=== PATIENT | male | born 1945 | race Hispanic/Latino ===

== ENCOUNTER 2018-04-11 10:04 | Outpatient (CLI) | payer MEDICARE ==
[2018-04-11] MEDS ORDERED: XYLOCAINE TOPICAL 4% TP ONE ×2 (11:04→12:15)
== END 2018-04-11 10:05 | disposition home or self-care (01) ==
LOC: WOUND 10:04
PROVIDERS: ATTEND Surgery
DX: E11.622 Type 2 diabetes mellitus with other skin ulcer (principal); L97.222 Non-pressure chronic ulcer of left calf with fat layer exposed; E11.40 Type 2 diabetes mellitus with diabetic neuropathy, unspecified; I48.91 Unspecified atrial fibrillation; I10 Essential (primary) hypertension; F17.200 Nicotine dependence, unspecified, uncomplicated
CPT/HCPCS: 11042; G0463

== ENCOUNTER → 2018-04-17 | Outpatient (CLI) | payer MEDICARE ==
[~2018-04-17] MED LIST: XYLOCAINE TOPICAL 4% TP ONE
== END | disposition home or self-care (01) ==
LOC: WOUND 11:04
PROVIDERS: ATTEND Surgery
DX: E11.622 Type 2 diabetes mellitus with other skin ulcer (principal); L97.821 Non-pressure chronic ulcer of other part of left lower leg limited to breakdown of skin; I10 Essential (primary) hypertension; I48.91 Unspecified atrial fibrillation; F17.200 Nicotine dependence, unspecified, uncomplicated

== ENCOUNTER 2018-05-15 13:29 | Outpatient (CLI) | payer MEDICARE ==
[2018-05-15] MEDS ORDERED: XYLOCAINE TOPICAL 4% TP ONE (13:40)
[2018-05-16] MEDS ORDERED: XYLOCAINE TOPICAL 4% TP ONE (12:13)
== END 2018-05-15 13:30 | disposition home or self-care (01) ==
LOC: WOUND 13:29
PROVIDERS: ATTEND Surgery
DX: E11.622 Type 2 diabetes mellitus with other skin ulcer (principal); L97.821 Non-pressure chronic ulcer of other part of left lower leg limited to breakdown of skin; I48.91 Unspecified atrial fibrillation; I10 Essential (primary) hypertension; F17.200 Nicotine dependence, unspecified, uncomplicated
CPT/HCPCS: 99214; G0463

== ENCOUNTER 2018-05-21 09:51 | Outpatient (CLI) | payer MEDICARE ==
--- NOTE | 2018-05-25 19:25 | Vascular Lab Report ---
LOWER EXTREMITY VENOUS DUPLEX: REASON FOR EXAM: Lymphedema. COMMENTS ON THE RIGHT: All veins visualized are freely compressible without evidence of internal echogenicity. Flow is spontaneous and phasic throughout. COMMENTS ON THE LEFT: All veins visualized are freely compressible without evidence of internal echogenicity. Flow is spontaneous and phasic throughout. IMPRESSION: No evidence of acute or chronic deep venous thrombosis in either lower extremity.
== END 2018-05-21 09:52 | disposition home or self-care (01) ==
LOC: VAS 09:51
PROVIDERS: ATTEND Surgery
DX: E11.40 Type 2 diabetes mellitus with diabetic neuropathy, unspecified (principal); I89.0 Lymphedema, not elsewhere classified; I48.91 Unspecified atrial fibrillation; I10 Essential (primary) hypertension; M19.90 Unspecified osteoarthritis, unspecified site; Z87.891 Personal history of nicotine dependence
CPT/HCPCS: 93970

== ENCOUNTER 2018-05-29 11:18 | Outpatient (CLI) | payer MEDICARE | END 2018-05-29 11:19 | disposition home or self-care (01) | LOC: WOUND 11:18 | PROVIDERS: ATTEND Surgery | DX: E11.622 Type 2 diabetes mellitus with other skin ulcer (principal); L97.821 Non-pressure chronic ulcer of other part of left lower leg limited to breakdown of skin; I48.91 Unspecified atrial fibrillation; I10 Essential (primary) hypertension; F17.200 Nicotine dependence, unspecified, uncomplicated | CPT/HCPCS: 99214; G0463 ==

== ENCOUNTER 2018-06-05 12:59 | Outpatient (CLI) | payer MEDICARE | END 2018-06-05 13:00 | disposition home or self-care (01) | LOC: WOUND 12:59 | PROVIDERS: ATTEND Surgery | DX: E11.622 Type 2 diabetes mellitus with other skin ulcer (principal); L97.821 Non-pressure chronic ulcer of other part of left lower leg limited to breakdown of skin; I48.91 Unspecified atrial fibrillation; I10 Essential (primary) hypertension; F17.200 Nicotine dependence, unspecified, uncomplicated | CPT/HCPCS: 99214; G0463 ==

== ENCOUNTER 2018-11-26 14:10 | Inpatient (IN) | payer MEDICARE ==
[2018-11-26] MEDS ORDERED: NACL 0.9% 500 ML 500 ML IV ONE (14:29)
[2018-11-26] MEDS ORDERED: ZOSYN/NS 4.5GM/100ML 4.5 GM/100 ML VIAL IV ONE (14:29)
[2018-11-26] MEDS ORDERED: CARDIZEM IV ONE (14:30)
[2018-11-26] MEDS ORDERED: TYLENOL PR ONE ×3 (14:32)
[2018-11-26] MEDS ORDERED: NACL 0.9% 1000 ML 1,000 ML ONE (14:32)
--- NOTE | 2018-11-26 14:39 | Emergency Department Report ---
HPI - General Chief Complaint: Altered Mental Status Time Seen by Provider: 11/26/18 14:16 - HPI HPI: 73-year-old male presents to the emergency department via EMS from home with complaint of tachycardia, altered mental status. The patient has a history of CHF, paroxysmal atrial fibrillation on anticoagulation, diabetes. EMS gave both Versed and Narcan to the patient without due to some agitation. The patient does present confused and/or disoriented and is currently AAO x2 to person and place but not time. He does present with atrial fibrillation with RVR, a fever of 103F and a code sepsis has been called. The patient is a poor historian. ED Past Medical Hx - Past Medical History Previous Medical History?: Yes Hx Hypertension: Yes Hx Diabetes: Yes Hx Arthritis: Yes Additional medical history: Atrial fibrillation. hep c, chronic back pain "requiring pain medicines around the clock." - Surgical History Past Surgical History?: Yes Additional Surgical History: hernia surgery - Social History Smoking Status: Unknown if ever smoked - Medications Home Medications: Home Medications Medication Instructions Recorded Confirmed Last Taken Type hydroCHLOROthiazide [HCTZ] 12.5 mg PO QDAY 08/26/13 10/28/14 10/28/14 History metFORMIN [Glucophage] 500 mg PO BID 08/26/13 10/28/14 10/28/14 History Oxycodone HCl [oxyCODONE TAB] 30 mg PO Q6HR PRN 08/27/13 10/28/14 10/28/14 History Gabapentin [Neurontin] 300 mg PO Q8H 10/28/14 10/28/14 10/28/14 History Ledipasvir/Sofosbuvir (Nf) 1 each PO DAILY 10/28/14 10/28/14 10/28/14 History [Harvoni 90-400 mg (Nf)] Warfarin [Coumadin] 10 mg PO QDAY 10/28/14 10/28/14 10/28/14 History Lisinopril [Zestril TAB] 2.5 mg PO QDAY #30 tablet 10/29/14 Unknown Rx Aspirin [Aspirin BABY CHEW TAB] 81 mg PO QDAY #30 tab.chew 10/30/14 Unknown Rx Metoprolol [Lopressor TAB] 50 mg PO Q8HR #90 tablet 10/30/14 Unknown Rx ED Review of Systems ROS: Stated complaint: ALTERED MENTAL STATUS Other details as noted in HPI Comment: Unobtainable due to pts medical conditions Physical Exam - Physical Exam Vital Signs: Vital Signs 11/26/18 11/26/18 14:21 14:26 Temperature 103.3 F H Pulse Rate 155 H Respiratory 30 H Rate Blood Pressure 131/68 [Left] O2 Sat by Pulse 96 Oximetry Physical Exam: GENERAL: Patient is ill-appearing.. HEENT: Normocephalic. Atraumatic. Patient has moist mucous membranes. EYES: Extraocular motions are intact. Pupils are equal and reactive to light bilaterally. NECK: Supple. Trachea is midline. CHEST/LUNGS: Clear to auscultation. There is no respiratory distress noted. HEART/CARDIOVASCULAR: Irregular with moderate to severe tachycardia. There is no obvious murmur. ABDOMEN: Abdomen is soft, nontender. Patient has normal bowel sounds. There is no abdominal distention. SKIN: There is some bilateral nonpitting lower extremity edema. The patient also has warmth and erythema to the lower extremities around the circumferential tib-fib's that appears consistent with a cellulitis. NEURO: Patient is altered and very sleepy but is arousable. He is AAO [address] but not time. Follows some commands. Withdraws from painful stimuli. MUSCULOSKELETAL: There is no tenderness or deformity. There is no evidence of acute injury. ED Course Vital Signs 11/26/18 11/26/18 14:21 14:26 Temperature 103.3 F H Pulse Rate 155 H Respiratory 30 H Rate Blood Pressure 131/68 [Left] O2 Sat by Pulse 96 Oximetry ED Medical Decision Making - Lab Data Result diagrams: 11/26/18 14:48 11/26/18 14:48 - EKG Data -: EKG Interpreted by Me - EKG Data When compared to previous EKG there are: no significant change Interpretation: unchanged when compared t (10/29/14), other (atrial fibrillation with RVR, rate of 147 bpm, left axis deviation, Q waves to the septal leads) - Radiology Data Radiology results: report reviewed, image reviewed interpreted by me: Chest x-ray does not show any pneumothorax, pleural effusion, pneumonia or obvious focal consolidation. PROCEDURE: CT HEAD/BRAIN WO CON TECHNIQUE: Computerized tomography of the head was performed without contrast material. Imaging was obtained in axial increments. CT DOSE LENGTH PRODUCT: 1049.4 mGycm HISTORY: Altered Mental Status COMPARISONS: None . FINDINGS: The ventricular system is normal in size and configuration. There is mild cerebral atrophy. There is no evidence for mass lesion, mass effect, midline shift, acute intracranial hemorrhage, or acute ischemia/ infarction. No evidence for acute skull fracture is seen. No abnormality in the overlying scalp soft tissues is seen. Visualized paranasal sinuses demonstrate mucosal thickening in the ethmoid air cells bilaterally. IMPRESSION: No acute intracranial process noted. Mild cerebral atrophy This document is electronically signed by Renita Saucedo MD., November 26 2018 06:21:29 PM ET Transcribed By: [facility] Dictated By: RENITA SAUCEDO MD Electronically Authenticated By: RENITA SAUCEDO MD Signed Date/Time: 11/26/18 8373 - Medical Decision Making This patient presented to the emergency department with some altered mental status and agitated behavior and was also found to have atrial fibrillation with RVR. He does have a history of paroxysmal A. fib. He'll receive some Narcan and Versed in route and does still present after but is no longer agitated. CT scan of the head does not show any bleed, shift, mass, ischemia or any other acute process. EKG confirms atrial fibrillation with RVR and the patient was given a dose of Cardizem followed by a Cardizem bolus. Patient also was a code sepsis secondary to his tachycardia, fever. His source of infection appears to be lower extremity cellulitis. He was started on antibiotics and is received IV fluid resuscitation. First lactic acid level came back elevated. The patient is on Coumadin but appears subtherapeutic. With this consistent atrial fibrillation with RVR, the patient will be started on a heparin drip. He will be admitted to the [facility] and was accepted for admission by the hospitalist, Dr. Hill. - Differential Diagnosis A-fib, PE, CVA, Substance abuse, Sepsis Critical Care Time: Yes Critical care time in (mins) excluding proc time.: 35 Critical care attestation.: If time is entered above; I have spent that time in minutes in the direct care of this critically ill patient, excluding procedure time. Critical care time was spent on this patient and during his initial evaluation, multiple re-eval uations, ordering and interpretation of labs and imaging, ordering and administration of medications including Cardizem and heparin drips. Critical Care Time: 35 minutes ED Disposition Clinical Impression: Atrial fibrillation with RVR, Bilateral lower leg cellulitis Altered mental status Qualifiers: Altered mental status type: unspecified Qualified Code(s): R41.82 - Altered mental status, unspecified Sepsis Qualifiers: Sepsis type: sepsis due to unspecified organism Qualified Code(s): A41.9 - Sepsis, unspecified organism Disposition: OP ADMIT IP TO THIS HOSP Is pt being admited?: Yes Condition: Serious Referrals: PRIMARY CARE, [Primary Care Provider] - 3-5 Days Time of Disposition: 18:01
[2018-11-26 15:01] LABS: Hematocrit 42.4 % (35.5-45.6); Mean Corpuscular HGB Conc 33 % (32-34); Mean Corpuscular Volume 82 fl (84-94); Platelet Count 129 K/mm3 (140-440); Red Blood Count 5.16 M/mm3 (3.65-5.03); Red Cell Distribution Width 17.2 % (13.2-15.2)
[2018-11-26 15:14] LABS: INR 1.19 (0.87-1.13)
[2018-11-26 15:15] LABS: Partial Thromboplastin Time 33.7 Sec. (24.2-36.6)
--- NOTE | 2018-11-26 15:26 | XRay Report ---
AP CHEST: HISTORY: Altered mental status Compared to 10/28/14. Emphysematous changes are again identified. There are moderate bullous changes in the right apex. The interstitium is prominent which could represent chronic interstitial changes or mild interstitial edema. There is no evidence for consolidation, large pleural effusion or pneumothorax. Heart size is at the upper limits of normal. IMPRESSION: Emphysematous changes. Prominent interstitium. See above.
[2018-11-26 15:36] LABS: BUN/Creatinine Ratio 16; Blood Urea Nitrogen 14 mg/dL (9-20)
[2018-11-26 15:37] LABS: Alanine Aminotransferase 10 units/L (7-56); Albumin 3.3 g/dL (3.9-5); Hemolysis Index 6
[2018-11-26] MEDS: CARDIZEM 100 MG in D5W 80 ML IV SCH ×2 (16:45→23:42)
--- NOTE | 2018-11-26 18:23 | Cat Scan Report ---
PROCEDURE: CT HEAD/BRAIN WO CON TECHNIQUE: Computerized tomography of the head was performed without contrast material. Imaging was obtained in axial increments. CT DOSE LENGTH PRODUCT: 1049.4 mGycm HISTORY: Altered Mental Status COMPARISONS: None . FINDINGS: The ventricular system is normal in size and configuration. There is mild cerebral atrophy. There is no evidence for mass lesion, mass effect, midline shift, acute intracranial hemorrhage, or a cute ischemia/ infarction. No evidence for acute skull fracture is seen. No abnormality in the overlying scalp soft tissues is s een. Visualized paranasal sinuses demonstrate mucosal thickening in the ethmoid air cells bilaterally. IMPRESSION: No acute intracranial process noted. Mild cerebral atrophy This document is electronically signed by Renita Saucedo MD., November 26 2018 06:21:29 PM ET
[2018-11-26] MEDS ORDERED: HEPARIN 10,000 UNITS/10 ML IV ONE (18:33)
[2018-11-26] MEDS ORDERED: HEPARIN/ 0.45% NACL-25,000 UNIT/500 ML 25,000 UNIT/500 ML BAG IV SCH (19:00)
[2018-11-26 19:11] LABS: Bilirubin,Urine NEG (Negative); Blood,Urine NEG (Negative); Color,Urine Yellow (Yellow); Protein,Urine <15 mg/dL mg/dL (Negative)
[2018-11-26 20:45] LABS: Band Neutrophils # (Manual) 0.6 K/mm3; Basophils % (Manual) 0 % (0.0-1.8); Eosinophils % (Manual) 0 % (0.0-4.3); Platelet Estimate Consistent w Auto; Total Cells Counted 100
[2018-11-27] MEDS ORDERED: TYLENOL PO PRN (00:28)
[2018-11-27] MEDS ORDERED: ZOFRAN IV PRN (00:28)
[2018-11-27] MEDS ORDERED: SODIUM CHLORIDE FLUSH SYRINGE 10 ML IV PRN (00:28)
[2018-11-27] MEDS ORDERED: VANCOMYCIN PHARMACY TO DOSE IV SCH (01:00)
[2018-11-27] MEDS ORDERED: NACL 0.9% 1000 ML 1,000 ML IV SCH (01:00)
[2018-11-27] MEDS ORDERED: ROXICODONE ONE ×2 (01:36→08:40)
[2018-11-27] MEDS ORDERED: GLUCOPHAGE ONE ×2 (01:36→08:44)
[2018-11-27] MEDS ORDERED: NEURONTIN ONE ×2 (01:37→06:01)
[2018-11-27] MEDS: LOPRESSOR PO SCH ×2 (01:45→06:15)
[2018-11-27] MEDS: UNASYN/NS 3 GM/100 ML 3 GM/100 ML BAG IV SCH ×4 (01:46→23:30)
[2018-11-27] MEDS: NEURONTIN PO SCH ×4 (01:46→21:26)
[2018-11-27] MEDS: GLUCOPHAGE PO SCH ×2 (01:46→08:49)
[2018-11-27] MEDS: ROXICODONE PO PRN ×4 (01:47→23:30)
[2018-11-27] MEDS ORDERED: VANCOMYCIN 2,000 MG in NACL 0.9% 500 ML 500 ML IV ONE (02:00)
--- NOTE | 2018-11-27 03:43 | Event Note ---
Date: 11/26/18 See H/p in reports Cellulitis Both Lower extremities Afib with RVR AMS
--- NOTE | 2018-11-27 04:32 | History and Physical Report ---
CHIEF COMPLAINT: Altered mental status for 1 day. HISTORY OF PRESENT ILLNESS: A 73-year-old male with history of hypertension, diabetes, arthritis, atrial fibrillation, hepatitis C and chronic back pain, presents with decreased mental status by EMS. The patient has history of CHF and paroxysmal atrial fibrillation, on anticoagulation. The patient was given Versed and Narcan en route to the Emergency Room because of agitation. In the Emergency Room, the patient has been lethargic and with decreased responsiveness. Had a temperature of 103 degrees. No good history is available. Old previous admissions reviewed. The patient was seen in 2014 and discharged on 10/30/2014 after being treated for atrial fibrillation, cardiomyopathy with ejection fraction of 35-40% and a negative stress test and chronic back pain. No admissions after 2015. PAST MEDICAL HISTORY: Significant for hypertension, diabetes, arthritis, atrial fibrillation, severe back pain. PAST SURGICAL HISTORY: Hernia surgery in the past. SOCIAL HISTORY: Does not smoke. No alcohol. FAMILY HISTORY: Hypertension. CURRENT MEDICATIONS: Lisinopril 2.5 mg once a day, metoprolol 50 mg once a day and Harvoni 1 tablet daily, which was given in 2014, metformin 500 b.i.d., this is all as per old medications. REVIEW OF SYSTEMS: Significant for decreased responsiveness and fever of 103. Redness in both the lower extremities on the medial aspect of the legs. Otherwise, review of systems negative. PHYSICAL EXAMINATION: GENERAL: Elderly male, lethargic, wakes up to pain stimuli. VITAL SIGNS: Temperature is 103.3. Pulse is 147, respirations are 20, sats are 95%, blood pressure 131/68. HEENT: Unremarkable. Pupils equal and reactive. NECK: Supple, no lymphadenopathy, no thyromegaly. LUNGS: Clear to auscultation and percussion. Good air entry. CARDIOVASCULAR: S1, S2 heard. No gallop, no murmur, no rub. Apical impulse in left fifth intercostal space and midclavicular line. ABDOMEN: Soft and benign. No hepatosplenomegaly. No guarding, no rigidity. Hernial orifices are normal. EXTREMITIES: Severe erythema present on the medial aspect of both the right and left lower extremity from mid thigh to ankle. CENTRAL NERVOUS SYSTEM: Decreased responsiveness. Moves all 4 extremities. LABORATORY DATA: White count is 12,800, H and H is 14.0 and 42.4, platelet count is 129,000, slightly low. Initial lactic acid is 3.2. INR is 1.19. Sodium is 137, potassium is 4.1, chloride is 97.6, BUN and creatinine is 14 and 0.9. Albumin is 3.3. Urine is negative. Drug screen is negative except for opiates, which is positive. Chest x-ray shows no acute findings. Emphysematous changes. Prominent interstitium. Head CT was normal. No acute intracranial process on the head CT. Duplex scan done in 05/2018, no evidence of acute or chronic deep venous thrombosis. EKG shows atrial fibrillation with rapid ventricular rate. ASSESSMENT AND PLAN: 1. Systemic inflammatory response syndrome. Lactic acid is high, high fever is present consistent with systemic inflammatory response syndrome. The patient initiated on IV antibiotics and IV fluids. 2. Atrial fibrillation with rapid ventricular rate. The patient is on Cardizem drip. 3. Bilateral lower extremity cellulitis. The patient initiated on Unasyn and vancomycin. 4. Hepatitis C. The patient was treated with Harvoni in 2014. 5.Anticoagulation, the patient was started on a heparin drip by the Emergency Room physician Coumadin level is subtherapeutic. We will continue heparin or discontinue depending on the recommendations of Cardiology. Cardiology consult requested. 6. Type 2 diabetes. Accu-Cheks a.c. and at bedtime and metformin to be continued. Check A1c. 7. Hypertension. Continue hydrochlorothiazide and lisinopril. Anticoagulation, continue Coumadin. 8. Deep venous thrombosis prophylaxis, the patient on heparin and gastrointestinal prophylaxis. In summary, the patient shows bilateral lower extremity cellulitis, atrial fibrillation with rapid AFib, hypertension and type 2 diabetes. JOB# [id number] FADIA/MADISYN ESPARZAD
[2018-11-27] MEDS ORDERED: DILAUDID ONE ×3 (04:52→08:41)
[2018-11-27] MEDS: DILAUDID IV PRN (04:58)
[2018-11-27] MEDS: CARDIZEM 100 MG in D5W 80 ML IV SCH (06:17)
[2018-11-27] MEDS ORDERED: HumaLOG SUB-Q ONE (08:42)
[2018-11-27] MEDS: HumaLOG SUB-Q SCH ×4 (08:50→22:18)
[2018-11-27] MEDS ORDERED: ZESTRIL PO SCH (10:00)
[2018-11-27] MEDS ORDERED: HCTZ PO SCH (10:00)
[2018-11-27] MEDS: BABY ASPIRIN PO SCH (11:01)
[2018-11-27] MEDS: SODIUM CHLORIDE FLUSH SYRINGE 10 ML IV SCH ×2 (11:03→21:26)
--- NOTE | 2018-11-27 12:48 | Consultation ---
History of Present Illness Consult date: 11/27/18 Consult reason: atrial fibrillation History of present illness: 73 year old male admitted with AMS, LE cellulitis and afib with RVR. Patient is known to have history of permanent afib, pursuing a rate control strategy. Patient denies chest pain or shortness of breath. His main compliant is back pain. Lactic acid was elevated on admission. Past History Past Medical History: atrial fib, CAD, COPD, diabetes, hypertension, other (chronic edema) Past Surgical History: hernia repair Social history: smoking Family history: no significant family history Medications and Allergies Allergies Allergy/AdvReac Type Severity Reaction Status Date / Time No Known Allergies Allergy Unverified 08/26/13 23:03 Home Medications Medication Instructions Recorded Confirmed Last Taken Type hydroCHLOROthiazide [HCTZ] 12.5 mg PO QDAY 08/26/13 11/27/18 11/26/18 History metFORMIN [Glucophage] 500 mg PO BID 08/26/13 11/27/18 11/26/18 09:00 History Oxycodone HCl [oxyCODONE TAB] 30 mg PO Q6HR PRN 08/27/13 11/27/18 11/26/18 History Gabapentin [Neurontin] 300 mg PO Q8H 10/28/14 11/27/18 11/26/18 History 300mg Ledipasvir/Sofosbuvir (Nf) 1 each PO DAILY 10/28/14 11/27/18 11/26/18 History [Harvoni 90-400 mg (Nf)] Warfarin [Coumadin] 10 mg PO QDAY 10/28/14 11/27/18 11/26/18 History Lisinopril [Zestril TAB] 2.5 mg PO QDAY #30 tablet 10/29/14 11/27/18 11/26/18 Rx Aspirin [Aspirin BABY CHEW TAB] 81 mg PO QDAY #30 tab.chew 10/30/14 11/27/18 11/26/18 09:00 Rx 81mg Metoprolol [Lopressor TAB] 50 mg PO Q8HR #90 tablet 10/30/14 11/27/18 11/26/18 Rx Active Meds: Active Medications Acetaminophen (Tylenol) 650 mg PO Q4H PRN PRN Reason: Pain MILD(1-3)/Fever >100.5/GONZALES Aspirin (Baby Aspirin) 81 mg PO QDAY [facility] Last Admin: 11/27/18 11:01 Dose: 81 mg Documented by: Dabigatran (Pradaxa) 150 mg PO BID [facility]; Protocol Digoxin (Lanoxin) 0.125 mg PO DAILY@1700 [facility] Gabapentin (Neurontin) 300 mg PO Q8HR [facility] Last Admin: 11/27/18 06:16 Dose: 300 mg Documented by: Hydromorphone HCl (Dilaudid) 0.5 mg IV Q3H PRN PRN Reason: Pain , Severe (7-10) Last Admin: 11/27/18 04:58 Dose: 0.5 mg Documented by: Ampicillin Sodium/Sulbactam Sodium (Unasyn/Ns 3 Gm/100 Ml) 3 gm in 100 mls @ 100 mls/hr IV Q6HR [facility]; Protocol Last Admin: 11/27/18 08:48 Dose: 100 mls/hr Documented by: Sodium Chloride (Nacl 0.9% 1000 Ml) 1,000 mls @ 100 mls/hr IV DIRECT [facility] Stop: 11/27/18 14:00 Vancomycin HCl 2,000 mg/ (Sodium Chloride) 540 mls @ 250 mls/hr IV Q24H [facility] Insulin Human Lispro (Humalog) 0 unit SUB-Q ACHS [facility]; Protocol Last Admin: 11/27/18 12:25 Dose: Not Given Documented by: Lisinopril (Zestril) 5 mg PO QDAY [facility] Metoprolol Succinate (Toprol Xl) 100 mg PO Q12H [facility] Ondansetron HCl (Zofran) 4 mg IV Q8H PRN PRN Reason: Nausea And Vomiting Oxycodone HCl (Roxicodone) 10 mg PO Q6H PRN PRN Reason: chronic back pain Last Admin: 11/27/18 08:48 Dose: 10 mg Documented by: Oxycodone/Acetaminophen (Percocet 5/325) 1 tab PO Q6H PRN PRN Reason: Pain, Moderate (4-6) Sodium Chloride (Sodium Chloride Flush Syringe 10 Ml) 10 ml IV BID [facility] Last Admin: 11/27/18 11:03 Dose: 10 ml Documented by: Sodium Chloride (Sodium Chloride Flush Syringe 10 Ml) 10 ml IV PRN PRN PRN Reason: LINE FLUSH Review of Systems All systems: negative Physical Examination Vital Signs Pulse Resp Pulse Ox 155 H 30 H 96 11/26/18 14:21 11/26/18 14:21 11/26/18 14:21 General appearance: no acute distress HEENT: Positive: PERRL Neck: Positive: neck supple Cardiac: Positive: irregularly irregular Lungs: Positive: Normal Exam Neuro: Positive: Grossly Intact Abdomen: Positive: Soft Extremities: Present: +3 Edema, phlebitic signs Results 11/26/18 14:48 11/26/18 14:48 Cardiac Enzymes 11/26/18 Range/Units 14:48 AST 11 (5-40) units/L Coagulation 11/26/18 Range/Units 14:48 PT 15.9 H (12.2-14.9) Sec. INR 1.19 H (0.87-1.13) APTT 33.7 (24.2-36.6) Sec. CBC 11/26/18 Range/Units 14:48 WBC 12.8 H (4.5-11.0) K/mm3 RBC 5.16 H (3.65-5.03) M/mm3 Hgb 14.0 (11.8-15.2) gm/dl Hct 42.4 (35.5-45.6) % Plt Count 129 L (140-440) K/mm3 Comprehensive Metabolic Panel 11/26/18 Range/Units 14:48 Sodium 137 (137-145) mmol/L Potassium 4.1 (3.6-5.0) mmol/L Chloride 97.6 L (98-107) mmol/L Carbon Dioxide 24 (22-30) mmol/L BUN 14 (9-20) mg/dL Creatinine 0.9 (0.8-1.5) mg/dL Glucose 203 H (75-100) mg/dL Calcium 10.0 (8.4-10.2) mg/dL AST 11 (5-40) units/L ALT 10 (7-56) units/L Alkaline Phosphatase 102 (35-129) units/L Total Protein 6.6 (6.3-8.2) g/dL Albumin 3.3 L (3.9-5) g/dL - EKG Interpretation EKG shows: atrial fibrillation EKG interpretations - Telemetry EKG Rhythm: Atrial Fibrillation Assessment and Plan Permanent atrial fibrillation on toprol XL, pradaxa and digoxin as outpatient Rate control strategy Mld cardiomyopathy, LVEF 45-50% by echo in 2017 Non-ischemia by C 12/2012 MPI 10/2014 - Snmall fixed inferior defect, no ischemia Leukocytosis Bilateral LE cellulitis Had a fever of 103.3 on admission Lactic acidosis - improving Type II DM Nicotine dependence Paraseptal emphysema on CTA chest 01/2018 History of pulmonary embolism on CTA chest 01/2018 Recommendations: Resume home meds for rate control Resume po pradaxa Echocardiogram to evaluate LVEF Hold metformin given underlying lactic acidosis Cellulitis treatment per primary team
--- NOTE | 2018-11-27 12:52 | Consultation ---
History of Present Illness Consult date: 11/27/18 Consult reason: atrial fibrillation History of present illness: This is a 73 year old male who was brought in with altered mental status. On presentation patient was noted febrile with a WBC of 12. Patient also noted with rapid atrial fibrillation thus this cardiac consultation. He was place on intravenous Diltiazem and admitted to [facility]. Patient denies chest pain and unusual shortness of breath. The patient has a history of persistent atrial fibrillation, rate controlled with Digoxin and Toprol XL. He is on anticoagulation therapy with Pradaxa. Medications and Allergies Allergies Allergy/AdvReac Type Severity Reaction Status Date / Time No Known Allergies Allergy Unverified 08/26/13 23:03 Home Medications Medication Instructions Recorded Confirmed Last Taken Type hydroCHLOROthiazide [HCTZ] 12.5 mg PO QDAY 08/26/13 11/27/18 11/26/18 History metFORMIN [Glucophage] 500 mg PO BID 08/26/13 11/27/18 11/26/18 09:00 History Oxycodone HCl [oxyCODONE TAB] 30 mg PO Q6HR PRN 08/27/13 11/27/18 11/26/18 History Gabapentin [Neurontin] 300 mg PO Q8H 10/28/14 11/27/18 11/26/18 History 300mg Ledipasvir/Sofosbuvir (Nf) 1 each PO DAILY 10/28/14 11/27/18 11/26/18 History [Harvoni 90-400 mg (Nf)] Warfarin [Coumadin] 10 mg PO QDAY 10/28/14 11/27/18 11/26/18 History Lisinopril [Zestril TAB] 2.5 mg PO QDAY #30 tablet 10/29/14 11/27/18 11/26/18 Rx Aspirin [Aspirin BABY CHEW TAB] 81 mg PO QDAY #30 tab.chew 10/30/14 11/27/18 11/26/18 09:00 Rx 81mg Metoprolol [Lopressor TAB] 50 mg PO Q8HR #90 tablet 10/30/14 11/27/18 11/26/18 Rx Active Meds: Active Medications Acetaminophen (Tylenol) 650 mg PO Q4H PRN PRN Reason: Pain MILD(1-3)/Fever >100.5/GONZALES Aspirin (Baby Aspirin) 81 mg PO QDAY [facility] Last Admin: 11/27/18 11:01 Dose: 81 mg Documented by: Dabigatran (Pradaxa) 150 mg PO BID [facility]; Protocol Digoxin (Lanoxin) 0.125 mg PO DAILY@1700 [facility] Gabapentin (Neurontin) 300 mg PO Q8HR [facility] Last Admin: 11/27/18 06:16 Dose: 300 mg Documented by: Hydromorphone HCl (Dilaudid) 0.5 mg IV Q3H PRN PRN Reason: Pain , Severe (7-10) Last Admin: 11/27/18 04:58 Dose: 0.5 mg Documented by: Ampicillin Sodium/Sulbactam Sodium (Unasyn/Ns 3 Gm/100 Ml) 3 gm in 100 mls @ 100 mls/hr IV Q6HR [facility]; Protocol Last Admin: 11/27/18 08:48 Dose: 100 mls/hr Documented by: Sodium Chloride (Nacl 0.9% 1000 Ml) 1,000 mls @ 100 mls/hr IV DIRECT [facility] Stop: 11/27/18 14:00 Vancomycin HCl 2,000 mg/ (Sodium Chloride) 540 mls @ 250 mls/hr IV Q24H [facility] Insulin Human Lispro (Humalog) 0 unit SUB-Q ACHS [facility]; Protocol Last Admin: 11/27/18 12:25 Dose: Not Given Documented by: Lisinopril (Zestril) 5 mg PO QDAY [facility] Metoprolol Succinate (Toprol Xl) 100 mg PO Q12H [facility] Ondansetron HCl (Zofran) 4 mg IV Q8H PRN PRN Reason: Nausea And Vomiting Oxycodone HCl (Roxicodone) 10 mg PO Q6H PRN PRN Reason: chronic back pain Last Admin: 11/27/18 08:48 Dose: 10 mg Documented by: Oxycodone/Acetaminophen (Percocet 5/325) 1 tab PO Q6H PRN PRN Reason: Pain, Moderate (4-6) Sodium Chloride (Sodium Chloride Flush Syringe 10 Ml) 10 ml IV BID [facility] Last Admin: 11/27/18 11:03 Dose: 10 ml Documented by: Sodium Chloride (Sodium Chloride Flush Syringe 10 Ml) 10 ml IV PRN PRN PRN Reason: LINE FLUSH Physical Examination Vital Signs Pulse Resp Pulse Ox 155 H 30 H 96 11/26/18 14:21 03/26/19 14:21 11/26/18 14:21 General appearance: no acute distress HEENT: Positive: PERRL Cardiac: Positive: irregularly irregular Lungs: Positive: Decreased Breath Sounds Results 11/26/18 14:48 11/26/18 14:48 Cardiac Enzymes 11/26/18 Range/Units 14:48 AST 11 (5-40) units/L Coagulation 11/26/18 Range/Units 14:48 PT 15.9 H (12.2-14.9) Sec. INR 1.19 H (0.87-1.13) APTT 33.7 (24.2-36.6) Sec. CBC 11/26/18 Range/Units 14:48 WBC 12.8 H (4.5-11.0) K/mm3 RBC 5.16 H (3.65-5.03) M/mm3 Hgb 14.0 (11.8-15.2) gm/dl Hct 42.4 (35.5-45.6) % Plt Count 129 L (140-440) K/mm3 Comprehensive Metabolic Panel 11/26/18 Range/Units 14:48 Sodium 137 (137-145) mmol/L Potassium 4.1 (3.6-5.0) mmol/L Chloride 97.6 L (98-107) mmol/L Carbon Dioxide 24 (22-30) mmol/L BUN 14 (9-20) mg/dL Creatinine 0.9 (0.8-1.5) mg/dL Glucose 203 H (75-100) mg/dL Calcium 10.0 (8.4-10.2) mg/dL AST 11 (5-40) units/L ALT 10 (7-56) units/L Alkaline Phosphatase 102 (35-129) units/L Total Protein 6.6 (6.3-8.2) g/dL Albumin 3.3 L (3.9-5) g/dL Assessment and Plan Sepsis Altered mental status Persistent Afib on pradaxa, Toprol XL and digoxin as an outpatient Hypertension Diabetes
[2018-11-27] MEDS: TOPROL XL PO SCH (16:02)
[2018-11-27] MEDS: LANOXIN PO SCH (16:04)
--- NOTE | 2018-11-27 16:38 | Progress Note ---
Assessment and Plan Assessment and plan: --A. fib with rapid ventricular rate; s/p Cardizem drip Now rate controlled, continue beta blockers --Chronic anticoagulation; on Pradaxa --Sepsis/SIRS; lactic acidosis; Secondary to sepsis due to cellulitis Continue empiric antibiotics follow cultures --Type 2 diabetes mellitus; Accu-Chek sliding scale coverage and ADA diet Check A1c --Hypertension; moderate control Continue current antihypertensives and when necessary medications --DVT prophylaxis; SCD/Pradaxa --Moderate malnutrition; nutrition supplements and supportive care --Full code: Consults and recommendations noted and appreciated Monitor closely and adjust management as needed History Interval history: Patient seen and examined medical records reviewed Admitted with A. fib with rapid ventricular rate received Cardizem drip Cardiology evaluation noted no appreciated Changed medications to oral metoprolol Rate controlled patient feels better no new complaints Vital signs noted Hospitalist Physical - Constitutional Vitals: Temp Pulse Resp BP Pulse Ox 98.4 F 86 19 93/50 92 11/26/18 19:20 11/27/18 16:04 11/27/18 10:31 11/27/18 16:04 11/27/18 10:31 General appearance: Present: no acute distress, well-nourished (who is listed today yet) - EENT Eyes: Present: PERRL, EOM intact - Neck Neck: Present: supple, normal ROM - Respiratory Respiratory effort: normal Respiratory: bilateral: diminished, negative: rales, rhonchi, wheezing - Cardiovascular Rhythm: irregularly irregular Heart Sounds: Present: S1 & S2 - Extremities Extremities: no ischemia, pulses intact - Abdominal General gastrointestinal: soft, non-tender, non-distended, normal bowel sounds - Integumentary Integumentary: Present: clear, warm - Psychiatric Psychiatric: appropriate mood/affect, cooperative - Neurologic Neurologic: moves all extremities Results - Labs CBC & Chem 7: 11/26/18 14:48 11/26/18 14:48 Labs: Laboratory Last Values WBC 12.8 K/mm3 (4.5-11.0) H 11/26/18 14:48 RBC 5.16 M/mm3 (3.65-5.03) H 11/26/18 14:48 Hgb 14.0 gm/dl (11.8-15.2) 11/26/18 14:48 Hct 42.4 % (35.5-45.6) 11/26/18 14:48 MCV 82 fl (84-94) L 11/26/18 14:48 MCH 27 pg (28-32) L 11/26/18 14:48 MCHC 33 % (32-34) 11/26/18 14:48 RDW 17.2 % (13.2-15.2) H 11/26/18 14:48 Plt Count 129 K/mm3 (140-440) L 11/26/18 14:48 Add Manual Diff Complete 11/26/18 14:48 Total Counted 100 11/26/18 14:48 Seg Neutrophils % Restaurant [employer] 11/26/18 14:48 Seg Neuts % (Manual) 91.0 % (40.0-70.0) H 11/26/18 14:48 Band Neutrophils % 5.0 % 11/26/18 14:48 Lymphocytes % (Manual) 2.0 % (13.4-35.0) L 11/26/18 14:48 Reactive Lymphs % (Man) 0 % 11/26/18 14:48 Monocytes % (Manual) 2.0 % (0.0-7.3) 11/26/18 14:48 Eosinophils % (Manual) 0 % (0.0-4.3) 11/26/18 14:48 Basophils % (Manual) 0 % (0.0-1.8) 11/26/18 14:48 Metamyelocytes % 0 % 11/26/18 14:48 Myelocytes % 0 % 11/26/18 14:48 Promyelocytes % 0 % 11/26/18 14:48 Blast Cells % 0 % 11/26/18 14:48 Nucleated RBC % Not Reportable 11/26/18 14:48 Seg Neutrophils # Man 11.6 K/mm3 (1.8-7.7) H 11/26/18 14:48 Band Neutrophils # 0.6 K/mm3 11/26/18 14:48 Lymphocytes # (Manual) 0.3 K/mm3 (1.2-5.4) L 11/26/18 14:48 Abs React Lymphs (Man) 0.0 K/mm3 11/26/18 14:48 Monocytes # (Manual) 0.3 K/mm3 (0.0-0.8) 11/26/18 14:48 Eosinophils # (Manual) 0.0 K/mm3 (0.0-0.4) 11/26/18 14:48 Basophils # (Manual) 0.0 K/mm3 (0.0-0.1) 11/26/18 14:48 Metamyelocytes # 0.0 K/mm3 11/26/18 14:48 Myelocytes # 0.0 K/mm3 11/26/18 14:48 Promyelocytes # 0.0 K/mm3 11/26/18 14:48 Blast Cells # 0.0 K/mm3 11/26/18 14:48 WBC Morphology Not Reportable 11/26/18 14:48 Hypersegmented Neuts Not Reportable 11/26/18 14:48 Hyposegmented Neuts Not Reportable 11/26/18 14:48 Hypogranular Neuts Not Reportable 11/26/18 14:48 Smudge Cells Not Reportable 11/26/18 14:48 Toxic Granulation Not Reportable 11/26/18 14:48 Toxic Vacuolation Not Reportable 11/26/18 14:48 Dohle Bodies Not Reportable 11/26/18 14:48 Pelger-Huet Anomaly Not Reportable 11/26/18 14:48 Alexis Rods Not Reportable 11/26/18 14:48 Platelet Estimate Consistent w auto 11/26/18 14:48 Clumped Platelets Not Reportable 11/26/18 14:48 Plt Clumps, EDTA Not Reportable 11/26/18 14:48 Large Platelets Not Reportable 11/26/18 14:48 Giant Platelets Not Reportable 11/26/18 14:48 Platelet Satelliting Not Reportable 11/26/18 14:48 Plt Morphology Comment Not Reportable 11/26/18 14:48 RBC Morphology Not Reportable 11/26/18 14:48 Dimorphic RBCs Not Reportable 11/26/18 14:48 Polychromasia Not Reportable 11/26/18 14:48 Hypochromasia Not Reportable 11/26/18 14:48 Poikilocytosis Not Reportable 11/26/18 14:48 Anisocytosis Not Reportable 11/26/18 14:48 Microcytosis Not Reportable 11/26/18 14:48 Macrocytosis Not Reportable 11/26/18 14:48 Spherocytes Not Reportable 11/26/18 14:48 Pappenheimer Bodies Not Reportable 11/26/18 14:48 Sickle Cells Not Reportable 11/26/18 14:48 Target Cells Not Reportable 11/26/18 14:48 Tear Drop Cells Not Reportable 11/26/18 14:48 Ovalocytes Not Reportable 11/26/18 14:48 Helmet Cells Not Reportable 11/26/18 14:48 [place] Bodies Not Reportable 11/26/18 14:48 Foster Rings Not Reportable 11/26/18 14:48 Marcie Cells Not Reportable 11/26/18 14:48 Bite Cells Not Reportable 11/26/18 14:48 Crenated Cell Not Reportable 11/26/18 14:48 Elliptocytes Not Reportable 11/26/18 14:48 Acanthocytes (Spur) Not Reportable 11/26/18 14:48 Rouleaux Not Reportable 11/26/18 14:48 Hemoglobin C Crystals Not Reportable 11/26/18 14:48 Schistocytes Not Reportable 11/26/18 14:48 Malaria parasites Not Reportable 11/26/18 14:48 Teto Bodies Not Reportable 11/26/18 14:48 Hem Pathologist Commnt No 11/26/18 14:48 PT 15.9 Sec. (12.2-14.9) H 11/26/18 14:48 INR 1.19 (0.87-1.13) H 11/26/18 14:48 APTT 33.7 Sec. (24.2-36.6) 11/26/18 14:48 D-Dimer 291.49 ng/mlDDU (0-234) H 11/26/18 14:28 Sodium 137 mmol/L (137-145) 11/26/18 14:48 Potassium 4.1 mmol/L (3.6-5.0) 11/26/18 14:48 Chloride 97.6 mmol/L (98-107) L 11/26/18 14:48 Carbon Dioxide 24 mmol/L (22-30) 11/26/18 14:48 Anion Gap 20 mmol/L 11/26/18 14:48 BUN 14 mg/dL (9-20) 11/26/18 14:48 Creatinine 0.9 mg/dL (0.8-1.5) 11/26/18 14:48 Estimated GFR > 60 ml/min 11/26/18 14:48 BUN/Creatinine Ratio 16 % 11/26/18 14:48 Glucose 203 mg/dL (75-100) H 11/26/18 14:48 POC Glucose 116 (70-105) H 11/27/18 12:26 Lactic Acid 1.60 mmol/L (0.7-2.0) 11/26/18 17:28 Calcium 10.0 mg/dL (8.4-10.2) 11/26/18 14:48 Total Bilirubin 2.20 mg/dL (0.1-1.2) H 11/26/18 14:48 AST 11 units/L (5-40) 11/26/18 14:48 ALT 10 units/L (7-56) 11/26/18 14:48 Alkaline Phosphatase 102 units/L (35-129) 11/26/18 14:48 Ammonia 39.0 umol/L (25-60) 11/26/18 14:48 Troponin T < 0.010 ng/mL (0.00-0.029) 11/26/18 14:48 Total Protein 6.6 g/dL (6.3-8.2) 11/26/18 14:48 Albumin 3.3 g/dL (3.9-5) L 11/26/18 14:48 Albumin/Globulin Ratio 1.0 % 11/26/18 14:48 TSH 1.600 mlU/mL (0.270-4.200) 11/26/18 14:48 Urine Color Yellow (Yellow) 11/26/18 17:25 Urine Turbidity Clear (Clear) 11/26/18 17:25 Urine pH 6.0 (5.0-7.0) 11/26/18 17:25 Ur Specific [place] 1.021 (1.003-1.030) 11/26/18 17:25 Urine Protein <15 mg/dl mg/dL (Negative) 11/26/18 17:25 Urine Glucose (UA) Neg mg/dL (Negative) 11/26/18 17:25 Urine Ketones Neg mg/dL (Negative) 11/26/18 17:25 Urine Blood Neg (Negative) 11/26/18 17:25 Urine Nitrite Neg (Negative) 11/26/18 17:25 Urine Bilirubin Neg (Negative) 11/26/18 17:25 Urine Urobilinogen 4.0 mg/dL (<2.0) 11/26/18 17:25 Ur Leukocyte Esterase Neg (Negative) 11/26/18 17:25 Urine WBC (Auto) 1.0 /HPF (0.0-6.0) 11/26/18 17:25 Urine RBC (Auto) 2.0 /HPF (0.0-6.0) 11/26/18 17:25 U Epithel Cells (Auto) < 1.0 /HPF (0-13.0) 11/26/18 17:25 Digoxin 0.3 ng/mL (0.9-2.0) L 11/27/18 13:08 Plasma/Serum Alcohol < 0.01 % (0-0.07) 11/26/18 14:48 Active Medications - Current Medications Current Medications: Generic Name Dose Route Start Last Admin Trade Name Freq PRN Reason Stop Dose Admin Acetaminophen 650 mg 11/27/18 00:28 Tylenol PO Q4H PRN Pain MILD(1-3)/Fever >100.5/GONZALES Aspirin 81 mg 11/27/18 10:00 11/27/18 11:01 Baby Aspirin PO 81 mg QDAY STARR Administration Dabigatran 150 mg 11/27/18 22:00 Pradaxa PO BID [facility] Protocol Digoxin 0.125 mg 11/27/18 17:00 11/27/18 16:04 Lanoxin PO 0.125 mg DAILY@1700 STARR Administration Gabapentin 300 mg 11/27/18 01:00 11/27/18 16:04 Neurontin PO 300 mg Q8HR TSARR Administration Hydromorphone HCl 0.5 mg 11/27/18 00:29 11/27/18 04:58 Dilaudid IV 0.5 mg Q3H PRN Administration Pain , Severe (7-10) Ampicillin Sodium/Sulbactam Sodium 3 gm in 100 mls @ 100 mls/hr 11/27/18 01:00 11/27/18 08:48 Unasyn/Ns 3 Gm/100 Ml IV 100 mls/hr Q6HR STARR Administration Protocol Vancomycin HCl 2,000 mg/ 540 mls @ 250 mls/hr 11/27/18 12:00 Sodium Chloride IV Q24H [facility] Insulin Human Lispro 0 unit 11/27/18 07:30 11/27/18 12:25 Humalog SUB-Q Not Given ACHS STARR Protocol Lisinopril 5 mg 11/27/18 12:40 Zestril PO QDAY STARR Metoprolol Succinate 100 mg 11/27/18 13:00 11/27/18 16:02 Toprol Xl PO 100 mg Q12H STARR Administration Ondansetron HCl 4 mg 11/27/18 00:28 Zofran IV Q8H PRN Nausea And Vomiting Oxycodone HCl 10 mg 11/27/18 00:26 11/27/18 16:03 Roxicodone PO 10 mg Q6H PRN Administration chronic back pain Oxycodone/Acetaminophen 1 tab 11/27/18 00:29 Percocet 5/325 PO Q6H PRN Pain, Moderate (4-6) Sodium Chloride 10 ml 11/27/18 10:00 11/27/18 11:03 Sodium Chloride Flush Syringe 10 Ml IV 10 ml BID STARR Administration Sodium Chloride 10 ml 11/27/18 00:28 Sodium Chloride Flush Syringe 10 Ml IV PRN PRN LINE FLUSH
[2018-11-27] MEDS ORDERED: COUMADIN PO SCH (17:00)
[2018-11-27] MEDS: PRADAXA PO SCH (21:26)
[2018-11-27] MEDS: VANCOMYCIN 2,000 MG in NACL 0.9% 500 ML 500 ML IV SCH (21:31)
[2018-11-28] MEDS: TOPROL XL PO SCH ×2 (00:52→13:08)
[2018-11-28] MEDS: UNASYN/NS 3 GM/100 ML 3 GM/100 ML BAG IV SCH ×3 (05:10→17:05)
[2018-11-28] MEDS: NEURONTIN PO SCH ×3 (05:10→21:24)
[2018-11-28 05:31] LABS: Basophils % (Auto) 0.3 % (0.0-1.8); Eosinophils # (Auto) 0.1 K/mm3 (0.0-0.4); Eosinophils % (Auto) 1.4 % (0.0-4.3); Hematocrit 37.7 % (35.5-45.6); Hemoglobin 12.1 gm/dl (11.8-15.2); Lymphocytes # (Auto) 0.6 K/mm3 (1.2-5.4); Lymphocytes % (Auto) 14.9 % (13.4-35.0); Mean Corpuscular HGB Conc 32 % (32-34); Mean Corpuscular Volume 83 fl (84-94); Monocytes # (Auto) 0.4 K/mm3 (0.0-0.8); Monocytes % (Auto) 11.4 % (0.0-7.3); Platelet Count 118 K/mm3 (140-440); Red Blood Count 4.52 M/mm3 (3.65-5.03); Red Cell Distribution Width 17.7 % (13.2-15.2)
[2018-11-28 05:41] LABS: INR 1.29 (0.87-1.13)
[2018-11-28 05:49] LABS: BUN/Creatinine Ratio 22; Blood Urea Nitrogen 13 mg/dL (9-20); Calcium 9.6 mg/dL (8.4-10.2); Hemolysis Index 5
[2018-11-28] MEDS: ROXICODONE PO PRN ×3 (05:50→17:40)
[2018-11-28] MEDS: SODIUM CHLORIDE FLUSH SYRINGE 10 ML IV SCH ×2 (09:53→21:25)
[2018-11-28] MEDS: BABY ASPIRIN PO SCH (09:53)
[2018-11-28] MEDS: PRADAXA PO SCH ×2 (09:53→21:25)
--- NOTE | 2018-11-28 10:12 | Progress Note ---
Assessment and Plan Permanent atrial fibrillation, rate control on toprol XL, pradaxa and digoxin as outpatient dig level 0.3 Dilated cardiomyopathy Non-ischemia by LHC 12/2012 MPI 10/2014 - Snmall fixed inferior defect, no ischemia EF 35-40% by echocardiogram this admission Leukocytosis Bilateral LE cellulitis Had a fever of 103.3 on admission Lactic acidosis - improving Type II DM Nicotine dependence Paraseptal emphysema on CTA chest 01/2018 History of pulmonary embolism on CTA chest 01/2018 Recommend: Continue medical therapy for dilated cardiomyopathy and chronic atrial fibrillation. Subjective Date of service: 11/28/18 Interval history: Patient has no complaints. Afib with a well controlled ventricular rate on telemetry. Objective Vital Signs Temp Pulse Resp BP Pulse Ox 11/28/18 08:00 98.1 F 11/28/18 06:21 93 H 14 101/55 95 11/28/18 06:11 78 16 101/55 89 11/28/18 06:01 86 17 101/55 93 11/28/18 05:51 101 H 15 98/58 93 11/28/18 05:41 88 13 98/58 93 11/28/18 05:31 100 H 18 98/58 91 11/28/18 05:21 110 H 18 98/58 93 11/28/18 05:11 82 17 98/58 93 11/28/18 05:00 85 19 98/58 94 11/28/18 04:51 78 16 103/59 95 11/28/18 04:41 95 H 16 103/59 94 11/28/18 04:31 94 H 16 103/59 97 11/28/18 04:21 93 H 21 103/59 96 11/28/18 04:11 84 16 103/59 93 11/28/18 04:00 98.4 F 77 14 90/54 94 11/28/18 03:51 87 18 103/59 91 11/28/18 03:40 95 H 17 103/59 92 11/28/18 03:31 91 H 17 103/59 91 11/28/18 03:21 78 22 103/59 91 11/28/18 03:11 84 20 103/59 92 11/28/18 03:00 71 13 103/59 91 11/28/18 02:51 99 H 21 98/53 94 11/28/18 02:41 81 19 98/53 91 11/28/18 02:31 83 19 98/53 93 11/28/18 02:21 96 H 13 98/53 90 11/28/18 02:11 81 15 98/53 96 11/28/18 02:00 87 13 98/53 94 11/28/18 01:51 79 15 95/58 96 11/28/18 01:41 89 17 95/58 93 11/28/18 01:31 85 16 95/58 90 11/28/18 01:21 103 H 19 95/58 92 11/28/18 01:11 95 H 21 95/58 92 11/28/18 01:00 86 16 98/53 92 11/28/18 00:52 89 95/58 11/28/18 00:51 76 15 95/58 91 11/28/18 00:41 83 19 95/58 96 11/28/18 00:31 82 22 95/58 84 11/28/18 00:21 75 17 95/58 95 11/28/18 00:11 89 20 95/58 96 11/28/18 00:01 77 14 95/58 96 11/27/18 23:51 69 19 99/60 90 11/27/18 23:41 99 H 17 99/60 94 11/27/18 23:31 97 H 15 99/60 95 11/27/18 23:21 98 H 25 H 99/60 93 11/27/18 23:11 90 14 99/60 92 11/27/18 23:01 72 20 99/60 92 11/27/18 22:51 68 16 98/62 92 11/27/18 22:41 76 16 98/62 92 11/27/18 22:31 77 20 98/62 92 11/27/18 22:21 71 18 96/58 92 11/27/18 22:19 80 18 96/58 91 11/27/18 22:15 78 18 96/58 95 11/27/18 22:00 86 20 96/58 94 11/27/18 21:58 86 96 11/27/18 21:45 77 20 98/62 95 11/27/18 21:31 98/62 93 11/27/18 21:15 98/62 93 11/27/18 21:01 98/62 90 11/27/18 20:45 95 H 18 98/54 96 11/27/18 20:31 89 20 98/54 93 11/27/18 20:15 82 17 98/54 92 11/27/18 20:00 98.2 F 83 16 88/52 91 11/27/18 19:45 69 16 97/54 95 11/27/18 19:31 77 11 L 97/54 95 11/27/18 19:15 79 21 103/57 91 11/27/18 19:00 74 14 103/57 97 11/27/18 18:45 74 16 97/54 94 11/27/18 18:31 74 21 97/54 95 11/27/18 18:15 77 14 97/54 96 11/27/18 18:00 84 12 97/54 90 11/27/18 17:45 83 13 91/57 94 11/27/18 17:31 99 H 12 91/57 95 11/27/18 17:15 79 17 91/57 93 11/27/18 17:00 87 19 91/57 94 11/27/18 16:45 76 19 87/58 90 11/27/18 16:31 80 20 87/58 97 11/27/18 16:15 81 15 93/50 92 11/27/18 16:04 86 93/50 11/27/18 16:02 85 93/50 11/27/18 16:00 79 15 93/50 11/27/18 15:45 74 14 87/58 95 11/27/18 15:31 95 H 17 87/58 92 11/27/18 15:15 86 14 87/58 93 11/27/18 15:01 95 H 21 87/58 88 11/27/18 14:45 80 28 H 96/60 89 11/27/18 14:31 99 H 17 96/60 88 11/27/18 14:15 92 H 18 96/60 93 11/27/18 14:00 82 18 96/60 91 11/27/18 13:45 87 20 97/52 84 11/27/18 13:31 134 H 20 97/52 94 11/27/18 13:15 93 H 18 97/52 91 11/27/18 13:01 99 H 14 90/54 94 11/27/18 12:45 104 H 15 97/52 95 11/27/18 12:31 86 14 97/52 95 11/27/18 12:15 72 11 L 97/52 93 11/27/18 12:01 84 15 97/52 92 11/27/18 11:45 90 14 109/55 94 11/27/18 11:31 87 17 109/55 95 11/27/18 11:15 76 16 109/55 97 11/27/18 11:01 82 109/55 11/27/18 11:00 80 16 103/60 92 11/27/18 10:45 78 21 103/60 93 11/27/18 10:31 82 19 103/60 92 11/27/18 10:16 86 18 95 11/27/18 10:14 83 18 90 - Physical Examination General: No Apparent Distress HEENT: Positive: PERRL Cardiac: Positive: irregularly irregular Lungs: Positive: Decreased Breath Sounds Neuro: Positive: Grossly Intact Extremities: Present: phlebitic signs - Labs and Meds Coagulation 11/28/18 Range/Units 04:42 PT 16.9 H (12.2-14.9) Sec. INR 1.29 H (0.87-1.13) CBC 11/28/18 Range/Units 04:42 WBC 3.9 L (4.5-11.0) K/mm3 RBC 4.52 (3.65-5.03) M/mm3 Hgb 12.1 (11.8-15.2) gm/dl Hct 37.7 (35.5-45.6) % Plt Count 118 L (140-440) K/mm3 Lymph # 0.6 L (1.2-5.4) K/mm3 [place] # 0.4 (0.0-0.8) K/mm3 Eos # 0.1 (0.0-0.4) K/mm3 Baso # 0.0 (0.0-0.1) K/mm3 Comprehensive Metabolic Panel 11/28/18 Range/Units 04:42 Sodium 137 (137-145) mmol/L Potassium 4.0 (3.6-5.0) mmol/L Chloride 101.7 (98-107) mmol/L Carbon Dioxide 27 (22-30) mmol/L BUN 13 (9-20) mg/dL Creatinine 0.6 L (0.8-1.5) mg/dL Glucose 145 H (75-100) mg/dL Calcium 9.6 (8.4-10.2) mg/dL
--- NOTE | 2018-11-28 10:22 | Progress Note ---
Assessment and Plan Assessment and plan: --A. fib with rapid ventricular rate; s/p Cardizem drip Now rate controlled, continue beta blockers and digoxin Cardiology following --Chronic anticoagulation; on Pradaxa --Sepsis/SIRS; lactic acidosis; Secondary to sepsis due to cellulitis Continue empiric antibiotics follow cultures --Type 2 diabetes mellitus; Accu-Chek sliding scale coverage and ADA diet Check A1c 7.6, resume metformin upon discharge --History of PE , patient is on Pradaxa --Hypertension; moderate control Continue current antihypertensives and when necessary medications --DVT prophylaxis; SCD/Pradaxa --Moderate malnutrition; nutrition supplements and supportive care --Full code: Consults and recommendations noted and appreciated Monitor closely and adjust management as needed History Interval history: Patient seen and examined medical records reviewed Patient feels better no new complaints He denies any chest pain or shortness of breath Heart rate within normal range Alert awake oriented 3 not in acute distress Vital signs noted Hospitalist Physical - Constitutional Vitals: Temp Pulse Resp BP Pulse Ox 98.1 F 93 H 14 101/55 95 11/28/18 08:00 11/28/18 06:21 11/28/18 06:21 11/28/18 06:21 11/28/18 06:21 General appearance: Present: no acute distress, well-nourished (who is listed today yet) - EENT Eyes: Present: PERRL, EOM intact - Neck Neck: Present: supple, normal ROM - Respiratory Respiratory effort: normal Respiratory: bilateral: diminished, negative: rales, rhonchi, wheezing - Cardiovascular Rhythm: regular Heart Sounds: Present: S1 & S2 - Extremities Extremities: no ischemia, No edema - Abdominal General gastrointestinal: soft, non-tender, non-distended, normal bowel sounds - Integumentary Integumentary: Present: clear, warm - Psychiatric Psychiatric: appropriate mood/affect, cooperative - Neurologic Neurologic: CNII-XII intact, moves all extremities Results - Labs CBC & Chem 7: 11/28/18 04:42 11/28/18 04:42 Labs: Laboratory Last Values WBC 3.9 K/mm3 (4.5-11.0) L 11/28/18 04:42 RBC 4.52 M/mm3 (3.65-5.03) 11/28/18 04:42 Hgb 12.1 gm/dl (11.8-15.2) 11/28/18 04:42 Hct 37.7 % (35.5-45.6) 11/28/18 04:42 MCV 83 fl (84-94) L 11/28/18 04:42 MCH 27 pg (28-32) L 11/28/18 04:42 MCHC 32 % (32-34) 11/28/18 04:42 RDW 17.7 % (13.2-15.2) H 11/28/18 04:42 Plt Count 118 K/mm3 (140-440) L 11/28/18 04:42 Lymph % (Auto) 14.9 % (13.4-35.0) 11/28/18 04:42 [place] % (Auto) 11.4 % (0.0-7.3) H 11/28/18 04:42 Eos % (Auto) 1.4 % (0.0-4.3) 11/28/18 04:42 Baso % (Auto) 0.3 % (0.0-1.8) 11/28/18 04:42 Lymph # 0.6 K/mm3 (1.2-5.4) L 11/28/18 04:42 [place] # 0.4 K/mm3 (0.0-0.8) 11/28/18 04:42 Eos # 0.1 K/mm3 (0.0-0.4) 11/28/18 04:42 Baso # 0.0 K/mm3 (0.0-0.1) 11/28/18 04:42 Add Manual Diff Complete 11/26/18 14:48 Total Counted 100 11/26/18 14:48 Seg Neutrophils % 72.0 % (40.0-70.0) H 11/28/18 04:42 Seg Neuts % (Manual) 91.0 % (40.0-70.0) H 11/26/18 14:48 Band Neutrophils % 5.0 % 11/26/18 14:48 Lymphocytes % (Manual) 2.0 % (13.4-35.0) L 11/26/18 14:48 Reactive Lymphs % (Man) 0 % 11/26/18 14:48 Monocytes % (Manual) 2.0 % (0.0-7.3) 11/26/18 14:48 Eosinophils % (Manual) 0 % (0.0-4.3) 11/26/18 14:48 Basophils % (Manual) 0 % (0.0-1.8) 11/26/18 14:48 Metamyelocytes % 0 % 11/26/18 14:48 Myelocytes % 0 % 11/26/18 14:48 Promyelocytes % 0 % 11/26/18 14:48 Blast Cells % 0 % 11/26/18 14:48 Nucleated RBC % Not Reportable 11/26/18 14:48 Seg Neutrophils # 2.8 K/mm3 (1.8-7.7) 11/28/18 04:42 Seg Neutrophils # Man 11.6 K/mm3 (1.8-7.7) H 11/26/18 14:48 Band Neutrophils # 0.6 K/mm3 11/26/18 14:48 Lymphocytes # (Manual) 0.3 K/mm3 (1.2-5.4) L 11/26/18 14:48 Abs React Lymphs (Man) 0.0 K/mm3 11/26/18 14:48 Monocytes # (Manual) 0.3 K/mm3 (0.0-0.8) 11/26/18 14:48 Eosinophils # (Manual) 0.0 K/mm3 (0.0-0.4) 11/26/18 14:48 Basophils # (Manual) 0.0 K/mm3 (0.0-0.1) 11/26/18 14:48 Metamyelocytes # 0.0 K/mm3 11/26/18 14:48 Myelocytes # 0.0 K/mm3 11/26/18 14:48 Promyelocytes # 0.0 K/mm3 11/26/18 14:48 Blast Cells # 0.0 K/mm3 11/26/18 14:48 WBC Morphology Not Reportable 11/26/18 14:48 Hypersegmented Neuts Not Reportable 11/26/18 14:48 Hyposegmented Neuts Not Reportable 11/26/18 14:48 Hypogranular Neuts Not Reportable 11/26/18 14:48 Smudge Cells Not Reportable 11/26/18 14:48 Toxic Granulation Not Reportable 11/26/18 14:48 Toxic Vacuolation Not Reportable 11/26/18 14:48 Dohle Bodies Not Reportable 11/26/18 14:48 Pelger-Huet Anomaly Not Reportable 11/26/18 14:48 Alexis Rods Not Reportable 11/26/18 14:48 Platelet Estimate Consistent w auto 11/26/18 14:48 Clumped Platelets Not Reportable 11/26/18 14:48 Plt Clumps, EDTA Not Reportable 11/26/18 14:48 Large Platelets Not Reportable 11/26/18 14:48 Giant Platelets Not Reportable 11/26/18 14:48 Platelet Satelliting Not Reportable 11/26/18 14:48 Plt Morphology Comment Not Reportable 11/26/18 14:48 RBC Morphology Not Reportable 11/26/18 14:48 Dimorphic RBCs Not Reportable 11/26/18 14:48 Polychromasia Not Reportable 11/26/18 14:48 Hypochromasia Not Reportable 11/26/18 14:48 Poikilocytosis Not Reportable 11/26/18 14:48 Anisocytosis Not Reportable 11/26/18 14:48 Microcytosis Not Reportable 11/26/18 14:48 Macrocytosis Not Reportable 11/26/18 14:48 Spherocytes Not Reportable 11/26/18 14:48 Pappenheimer Bodies Not Reportable 11/26/18 14:48 Sickle Cells Not Reportable 11/26/18 14:48 Target Cells Not Reportable 11/26/18 14:48 Tear Drop Cells Not Reportable 11/26/18 14:48 Ovalocytes Not Reportable 11/26/18 14:48 Helmet Cells Not Reportable 11/26/18 14:48 [place] Bodies Not Reportable 11/26/18 14:48 Brush Rings Not Reportable 11/26/18 14:48 [place] Cells Not Reportable 11/26/18 14:48 Bite Cells Not Reportable 11/26/18 14:48 Crenated Cell Not Reportable 11/26/18 14:48 Elliptocytes Not Reportable 11/26/18 14:48 Acanthocytes (Spur) Not Reportable 11/26/18 14:48 Rouleaux Not Reportable 11/26/18 14:48 Hemoglobin C Crystals Not Reportable 11/26/18 14:48 Schistocytes Not Reportable 11/26/18 14:48 Malaria parasites Not Reportable 11/26/18 14:48 Teot Bodies Not Reportable 11/26/18 14:48 Hem Pathologist Commnt No 11/26/18 14:48 PT 16.9 Sec. (12.2-14.9) H 11/28/18 04:42 INR 1.29 (0.87-1.13) H 11/28/18 04:42 APTT 33.7 Sec. (24.2-36.6) 11/26/18 14:48 D-Dimer 291.49 ng/mlDDU (0-234) H 11/26/18 14:28 Sodium 137 mmol/L (137-145) 11/28/18 04:42 Potassium 4.0 mmol/L (3.6-5.0) 11/28/18 04:42 Chloride 101.7 mmol/L (98-107) 11/28/18 04:42 Carbon Dioxide 27 mmol/L (22-30) 11/28/18 04:42 Anion Gap 12 mmol/L 11/28/18 04:42 BUN 13 mg/dL (9-20) 11/28/18 04:42 Creatinine 0.6 mg/dL (0.8-1.5) L 11/28/18 04:42 Estimated GFR > 60 ml/min 11/28/18 04:42 BUN/Creatinine Ratio 22 % 11/28/18 04:42 Glucose 145 mg/dL (75-100) H 11/28/18 04:42 POC Glucose 176 (70-105) H 11/28/18 06:20 Hemoglobin A1c 7.6 % (4-6) H 11/28/18 04:42 Lactic Acid 1.60 mmol/L (0.7-2.0) 11/26/18 17:28 Calcium 9.6 mg/dL (8.4-10.2) 11/28/18 04:42 Total Bilirubin 2.20 mg/dL (0.1-1.2) H 11/26/18 14:48 AST 11 units/L (5-40) 11/26/18 14:48 ALT 10 units/L (7-56) 11/26/18 14:48 Alkaline Phosphatase 102 units/L (35-129) 11/26/18 14:48 Ammonia 39.0 umol/L (25-60) 11/26/18 14:48 Troponin T < 0.010 ng/mL (0.00-0.029) 11/26/18 14:48 Total Protein 6.6 g/dL (6.3-8.2) 11/26/18 14:48 Albumin 3.3 g/dL (3.9-5) L 11/26/18 14:48 Albumin/Globulin Ratio 1.0 % 11/26/18 14:48 TSH 1.600 mlU/mL (0.270-4.200) 11/26/18 14:48 Urine Color Yellow (Yellow) 11/26/18 17:25 Urine Turbidity Clear (Clear) 11/26/18 17:25 Urine pH 6.0 (5.0-7.0) 11/26/18 17:25 Ur Specific [place] 1.021 (1.003-1.030) 11/26/18 17:25 Urine Protein <15 mg/dl mg/dL (Negative) 11/26/18 17:25 Urine Glucose (UA) Neg mg/dL (Negative) 11/26/18 17:25 Urine Ketones Neg mg/dL (Negative) 11/26/18 17:25 Urine Blood Neg (Negative) 11/26/18 17:25 Urine Nitrite Neg (Negative) 11/26/18 17:25 Urine Bilirubin Neg (Negative) 11/26/18 17:25 Urine Urobilinogen 4.0 mg/dL (<2.0) 11/26/18 17:25 Ur Leukocyte Esterase Neg (Negative) 11/26/18 17:25 Urine WBC (Auto) 1.0 /HPF (0.0-6.0) 11/26/18 17:25 Urine RBC (Auto) 2.0 /HPF (0.0-6.0) 11/26/18 17:25 U Epithel Cells (Auto) < 1.0 /HPF (0-13.0) 11/26/18 17:25 Digoxin 0.3 ng/mL (0.9-2.0) L 11/27/18 13:08 Plasma/Serum Alcohol < 0.01 % (0-0.07) 11/26/18 14:48 Active Medications - Current Medications Current Medications: Generic Name Dose Route Start Last Admin Trade Name Freq PRN Reason Stop Dose Admin Acetaminophen 650 mg 11/27/18 00:28 Tylenol PO Q4H PRN Pain MILD(1-3)/Fever >100.5/GONZALES Aspirin 81 mg 11/27/18 10:00 11/28/18 09:53 Baby Aspirin PO 81 mg QDAY [facility] Administration Dabigatran 150 mg 11/27/18 22:00 11/28/18 09:53 Pradaxa PO 150 mg BID [facility] Administration Protocol Digoxin 0.125 mg 11/27/18 17:00 11/27/18 16:04 Lanoxin PO 0.125 mg DAILY@1700 [facility] Administration Gabapentin 300 mg 11/27/18 01:00 11/28/18 05:10 Neurontin PO 300 mg Q8HR [facility] Administration Hydromorphone HCl 0.5 mg 11/27/18 00:29 11/27/18 04:58 Dilaudid IV 0.5 mg Q3H PRN Administration Pain , Severe (7-10) Ampicillin Sodium/Sulbactam Sodium 3 gm in 100 mls @ 100 mls/hr 11/27/18 01:00 11/28/18 05:10 Unasyn/Ns 3 Gm/100 Ml IV 100 mls/hr Q6HR [facility] Administration Protocol Vancomycin HCl 2,000 mg/ 540 mls @ 250 mls/hr 11/27/18 12:00 11/27/18 21:31 Sodium Chloride IV Not Given Q24H [facility] Insulin Human Lispro 0 unit 11/27/18 07:30 11/27/18 22:18 [facility]alog SUB[facility]Q [facility] Protocol Lisinopril 5 mg 11/27/18 12:40 Zestril PO QDAY [facility] Metoprolol Succinate 100 mg 11/27/18 13:00 11/28/18 00:52 Toprol Xl PO Not Given Q12H [facility] Ondansetron HCl 4 mg 11/27/18 00:28 Zofran IV Q8H PRN Nausea And Vomiting Oxycodone HCl 10 mg 11/27/18 00:26 11/28/18 05:50 Roxicodone PO 10 mg Q6H PRN Administration chronic back pain Oxycodone/Acetaminophen 1 tab 11/27/18 00:29 Percocet 5/325 PO Q6H PRN Pain, Moderate (4-6) Sodium Chloride 10 ml 11/27/18 10:00 11/28/18 09:53 Sodium Chloride Flush Syringe 10 Ml IV 10 ml BID [facility] Administration Sodium Chloride 10 ml 11/27/18 00:28 Sodium Chloride Flush Syringe 10 Ml IV PRN PRN LINE FLUSH
[2018-11-28] MEDS: ZESTRIL PO SCH (11:01)
[2018-11-28] MEDS: PERCOCET 5/325 PO PRN ×2 (11:23→21:54)
[2018-11-28] MEDS: VANCOMYCIN 2,000 MG in NACL 0.9% 500 ML 500 ML IV SCH (11:23)
[2018-11-28] MEDS: HumaLOG SUB-Q SCH ×3 (11:39→21:49)
[2018-11-28] MEDS: LANOXIN PO SCH (17:02)
[2018-11-29] MEDS: TOPROL XL PO SCH ×2 (00:27→17:35)
[2018-11-29] MEDS: UNASYN/NS 3 GM/100 ML 3 GM/100 ML BAG IV SCH ×4 (00:30→17:42)
[2018-11-29] MEDS: ROXICODONE PO PRN ×4 (00:36→21:53)
[2018-11-29] MEDS: NEURONTIN PO SCH ×3 (05:37→21:43)
[2018-11-29 06:24] LABS: INR 1.25 (0.87-1.13)
[2018-11-29] MEDS: BABY ASPIRIN PO SCH (09:41)
[2018-11-29] MEDS: ZESTRIL PO SCH (09:41)
[2018-11-29] MEDS: PRADAXA PO SCH ×2 (09:41→21:43)
[2018-11-29] MEDS: HumaLOG SUB-Q SCH ×4 (09:42→21:45)
[2018-11-29] MEDS: SODIUM CHLORIDE FLUSH SYRINGE 10 ML IV SCH ×2 (09:50→21:44)
--- NOTE | 2018-11-29 11:32 | Progress Note ---
Assessment and Plan Permanent atrial fibrillation, rate control on toprol XL, pradaxa and digoxin as outpatient dig level 0.3 Dilated cardiomyopathy Non-ischemia by LHC 12/2012 MPI 10/2014 - Snmall fixed inferior defect, no ischemia EF 35-40% by echocardiogram this admission Leukocytosis Bilateral LE cellulitis Had a fever of 103.3 on admission Lactic acidosis - improving Type II DM Nicotine dependence Paraseptal emphysema on CTA chest 01/2018 History of pulmonary embolism on CTA chest 01/2018 Recommend: Continue medical therapy for dilated cardiomyopathy and chronic atrial fibrillation. No new cardiac recommendations Subjective Date of service: 11/29/18 Principal diagnosis: Afib Interval history: No cardiac events overnight Objective Vital Signs Temp Pulse Resp Resp BP Pulse Ox 11/29/18 07:40 87 15 107/63 97 11/29/18 07:30 85 18 107/63 94 11/29/18 07:20 70 13 107/63 90 11/29/18 07:10 83 13 107/63 97 11/29/18 07:00 71 14 107/63 88 11/29/18 06:50 77 14 106/57 94 11/29/18 06:40 72 16 106/57 94 11/29/18 06:30 107 H 16 106/57 92 11/29/18 06:20 117 H 17 106/57 95 11/29/18 06:10 82 11 L 106/57 96 11/29/18 06:00 88 14 106/57 88 11/29/18 05:50 86 9 L 111/70 95 11/29/18 05:40 91 H 18 111/70 92 11/29/18 05:30 78 13 111/70 93 11/29/18 05:20 80 11 L 111/70 95 11/29/18 05:10 75 21 108/61 92 11/29/18 05:00 84 12 108/61 88 11/29/18 04:50 85 13 111/70 92 11/29/18 04:40 74 18 111/70 92 11/29/18 04:30 78 11 L 111/70 94 11/29/18 04:20 72 11 L 111/70 88 11/29/18 04:10 72 17 111/70 90 11/29/18 04:00 76 14 111/70 92 11/29/18 03:50 84 13 102/66 95 11/29/18 03:40 85 13 102/66 97 11/29/18 03:30 91 H 19 102/66 91 11/29/18 03:20 90 14 102/66 94 11/29/18 03:10 72 14 102/66 94 11/29/18 03:00 100 H 16 105/62 91 11/29/18 02:50 105 H 15 105/62 95 11/29/18 02:40 97 H 20 105/62 92 11/29/18 02:30 81 14 105/62 93 11/29/18 02:20 102 H 22 105/62 93 11/29/18 02:10 93 H 17 105/62 92 11/29/18 02:00 97 H 17 104/55 11/29/18 01:50 83 19 104/55 94 11/29/18 01:40 84 17 104/55 95 11/29/18 01:30 85 16 104/55 90 11/29/18 01:20 102 H 25 H 104/55 94 11/29/18 01:10 85 15 104/55 89 11/29/18 01:00 90 14 104/55 11/29/18 00:50 73 18 102/60 90 11/29/18 00:40 74 17 102/60 94 11/29/18 00:30 81 14 102/60 95 11/29/18 00:27 100 H 102/60 11/29/18 00:20 93 H 14 102/60 93 11/29/18 00:10 76 15 102/60 96 11/29/18 00:00 93 H 13 102/60 91 11/28/18 23:50 81 19 104/66 93 11/28/18 23:40 83 21 104/66 93 11/28/18 23:30 80 14 104/66 94 11/28/18 23:20 110 H 16 104/66 94 11/28/18 23:10 74 16 114/66 92 11/28/18 23:00 78 17 114/66 90 11/28/18 22:50 78 13 104/66 91 11/28/18 22:40 79 19 104/66 93 11/28/18 22:30 80 14 104/66 95 11/28/18 22:20 67 15 104/66 94 11/28/18 22:10 77 21 104/66 95 11/28/18 22:00 84 17 19 104/66 11/28/18 21:50 82 14 102/60 93 11/28/18 21:40 102 H 15 102/60 93 11/28/18 21:30 75 11 L 102/60 94 11/28/18 21:20 80 19 102/60 93 11/28/18 21:10 77 17 102/60 93 11/28/18 21:00 84 18 102/60 93 11/28/18 20:50 79 22 102/60 96 11/28/18 20:40 81 17 102/60 97 11/28/18 20:30 74 20 102/60 95 11/28/18 20:20 83 17 102/60 95 11/28/18 20:10 79 13 102/60 94 11/28/18 20:00 73 19 102/60 97 11/28/18 19:50 78 17 102/60 93 11/28/18 19:40 71 16 102/60 96 11/28/18 19:30 86 13 102/60 96 11/28/18 19:20 71 16 102/60 97 11/28/18 19:10 89 19 102/60 92 11/28/18 19:00 79 18 102/60 94 11/28/18 18:50 87 19 102/60 87 11/28/18 18:40 79 18 102/60 92 11/28/18 18:30 88 18 102/60 85 11/28/18 18:20 78 20 102/60 96 11/28/18 18:10 96 H 14 102/60 96 11/28/18 18:00 94 H 22 102/60 99 11/28/18 17:50 71 16 102/60 97 11/28/18 17:20 114 H 24 102/60 91 11/28/18 17:10 88 15 102/60 95 11/28/18 17:02 92 H 102/62 11/28/18 17:00 104 H 15 102/60 96 11/28/18 16:50 72 16 102/60 98 11/28/18 16:40 69 17 102/60 99 11/28/18 16:30 94 H 16 102/60 95 11/28/18 16:20 68 15 102/60 97 11/28/18 16:10 87 12 102/60 98 11/28/18 16:00 98.2 F 116 H 20 102/60 88 11/28/18 15:50 91 H 19 102/60 97 11/28/18 15:40 100 H 13 84/45 96 11/28/18 15:30 67 17 84/45 94 11/28/18 15:20 70 16 96 11/28/18 15:10 75 14 84/45 92 11/28/18 15:00 76 16 84/45 94 11/28/18 14:51 96 H 16 84/45 95 11/28/18 14:41 94 H 17 84/45 95 11/28/18 14:31 84 15 84/45 95 11/28/18 14:21 66 13 84/45 94 11/28/18 14:11 78 13 84/45 97 11/28/18 14:01 81 16 84/45 91 11/28/18 14:00 96 11/28/18 13:51 91 H 14 104/61 97 11/28/18 13:41 108 H 29 H 104/61 95 11/28/18 13:31 85 21 104/61 96 11/28/18 13:21 77 11 L 104/61 97 11/28/18 13:11 100 H 13 104/61 98 11/28/18 13:08 71 104/61 11/28/18 13:00 77 14 104/61 93 11/28/18 12:51 87 17 105/57 95 11/28/18 12:41 90 15 105/57 93 11/28/18 12:31 82 19 105/57 92 11/28/18 12:21 109 H 13 105/57 95 11/28/18 12:11 84 12 105/57 92 11/28/18 12:00 97.5 F L 80 13 105/57 94 11/28/18 11:51 71 17 92/55 96 11/28/18 11:41 88 19 92/55 92 - Physical Examination General: No Apparent Distress HEENT: Positive: PERRL Neck: Positive: neck supple Cardiac: Positive: irregularly irregular Lungs: Positive: Decreased Breath Sounds Neuro: Positive: Grossly Intact Abdomen: Positive: Soft Extremities: Present: phlebitic signs - Labs and Meds Coagulation 11/29/18 Range/Units 04:43 PT 16.5 H (12.2-14.9) Sec. INR 1.25 H (0.87-1.13)
[2018-11-29] MEDS: VANCOMYCIN 2,000 MG in NACL 0.9% 500 ML 500 ML IV SCH (12:39)
--- NOTE | 2018-11-29 13:04 | Progress Note ---
Assessment and Plan Assessment and plan: --A. fib with rapid ventricular rate; s/p Cardizem drip Now rate controlled, continue beta blockers and digoxin Cardiology following --Sepsis/SIRS; lactic acidosis; --Bilateral lower extremity cellulitis; elevate the limb Continue empiric antibiotics follow cultures --Chronic anticoagulation; on Pradaxa --Nonischemic cardiomyopathy; ejection fraction 35-40% Continue anti-failure medications, cardiology following --Type 2 diabetes mellitus; Accu-Chek sliding scale coverage and ADA diet Check A1c 7.6, resume metformin upon discharge --History of PE , patient is on Pradaxa --Hypertension; moderate control Continue current antihypertensives and when necessary medications --DVT prophylaxis; SCD/Pradaxa --Moderate malnutrition; nutrition supplements and supportive care --Full code: Consults and recommendations noted and appreciated Monitor closely and adjust management as needed History Interval history: Patient seen and examined medical records reviewed Patient feels better no new complaints Alert awake oriented 3, vital signs noted Hospitalist Physical - Constitutional Vitals: Temp Pulse Resp BP Pulse Ox 97.6 F 87 15 107/63 97 11/29/18 11:56 11/29/18 07:40 11/29/18 07:40 11/29/18 07:40 11/29/18 07:40 General appearance: Present: no acute distress, well-nourished (who is listed today yet) - EENT Eyes: Present: PERRL, EOM intact - Neck Neck: Present: supple, normal ROM - Respiratory Respiratory effort: normal Respiratory: bilateral: diminished, negative: rales, rhonchi, wheezing - Cardiovascular Rhythm: regular Heart Sounds: Present: S1 & S2 - Extremities Extremities: no ischemia, abnormal (bilateral lower extremity cellulitis) Extremity abnormal: other (chronic skin changes) - Abdominal General gastrointestinal: soft, non-tender, non-distended, normal bowel sounds - Integumentary Integumentary: Present: clear, warm - Psychiatric Psychiatric: appropriate mood/affect, cooperative - Neurologic Neurologic: CNII-XII intact, moves all extremities Results - Labs CBC & Chem 7: 11/28/18 04:42 11/28/18 04:42 Labs: Laboratory Last Values WBC 3.9 K/mm3 (4.5-11.0) L 11/28/18 04:42 RBC 4.52 M/mm3 (3.65-5.03) 11/28/18 04:42 Hgb 12.1 gm/dl (11.8-15.2) 11/28/18 04:42 Hct 37.7 % (35.5-45.6) 11/28/18 04:42 MCV 83 fl (84-94) L 11/28/18 04:42 MCH 27 pg (28-32) L 11/28/18 04:42 MCHC 32 % (32-34) 11/28/18 04:42 RDW 17.7 % (13.2-15.2) H 11/28/18 04:42 Plt Count 118 K/mm3 (140-440) L 11/28/18 04:42 Lymph % (Auto) 14.9 % (13.4-35.0) 11/28/18 04:42 [place] % (Auto) 11.4 % (0.0-7.3) H 11/28/18 04:42 Eos % (Auto) 1.4 % (0.0-4.3) 11/28/18 04:42 Baso % (Auto) 0.3 % (0.0-1.8) 11/28/18 04:42 Lymph # 0.6 K/mm3 (1.2-5.4) L 11/28/18 04:42 [place] # 0.4 K/mm3 (0.0-0.8) 11/28/18 04:42 Eos # 0.1 K/mm3 (0.0-0.4) 11/28/18 04:42 Baso # 0.0 K/mm3 (0.0-0.1) 11/28/18 04:42 Add Manual Diff Complete 11/26/18 14:48 Total Counted 100 11/26/18 14:48 Seg Neutrophils % 72.0 % (40.0-70.0) H 11/28/18 04:42 Seg Neuts % (Manual) 91.0 % (40.0-70.0) H 11/26/18 14:48 Band Neutrophils % 5.0 % 11/26/18 14:48 Lymphocytes % (Manual) 2.0 % (13.4-35.0) L 11/26/18 14:48 Reactive Lymphs % (Man) 0 % 11/26/18 14:48 Monocytes % (Manual) 2.0 % (0.0-7.3) 11/26/18 14:48 Eosinophils % (Manual) 0 % (0.0-4.3) 11/26/18 14:48 Basophils % (Manual) 0 % (0.0-1.8) 11/26/18 14:48 Metamyelocytes % 0 % 11/26/18 14:48 Myelocytes % 0 % 11/26/18 14:48 Promyelocytes % 0 % 11/26/18 14:48 Blast Cells % 0 % 11/26/18 14:48 Nucleated RBC % Not Reportable 11/26/18 14:48 Seg Neutrophils # 2.8 K/mm3 (1.8-7.7) 11/28/18 04:42 Seg Neutrophils # Man 11.6 K/mm3 (1.8-7.7) H 11/26/18 14:48 Band Neutrophils # 0.6 K/mm3 11/26/18 14:48 Lymphocytes # (Manual) 0.3 K/mm3 (1.2-5.4) L 11/26/18 14:48 Abs React Lymphs (Man) 0.0 K/mm3 11/26/18 14:48 Monocytes # (Manual) 0.3 K/mm3 (0.0-0.8) 11/26/18 14:48 Eosinophils # (Manual) 0.0 K/mm3 (0.0-0.4) 11/26/18 14:48 Basophils # (Manual) 0.0 K/mm3 (0.0-0.1) 11/26/18 14:48 Metamyelocytes # 0.0 K/mm3 11/26/18 14:48 Myelocytes # 0.0 K/mm3 11/26/18 14:48 Promyelocytes # 0.0 K/mm3 11/26/18 14:48 Blast Cells # 0.0 K/mm3 11/26/18 14:48 WBC Morphology Not Reportable 11/26/18 14:48 Hypersegmented Neuts Not Reportable 11/26/18 14:48 Hyposegmented Neuts Not Reportable 11/26/18 14:48 Hypogranular Neuts Not Reportable 11/26/18 14:48 Smudge Cells Not Reportable 11/26/18 14:48 Toxic Granulation Not Reportable 11/26/18 14:48 Toxic Vacuolation Not Reportable 11/26/18 14:48 Dohle Bodies Not Reportable 11/26/18 14:48 Pelger-Huet Anomaly Not Reportable 11/26/18 14:48 Alexis Rods Not Reportable 11/26/18 14:48 Platelet Estimate Consistent w auto 11/26/18 14:48 Clumped Platelets Not Reportable 11/26/18 14:48 Plt Clumps, EDTA Not Reportable 11/26/18 14:48 Large Platelets Not Reportable 11/26/18 14:48 Giant Platelets Not Reportable 11/26/18 14:48 Platelet Satelliting Not Reportable 11/26/18 14:48 Plt Morphology Comment Not Reportable 11/26/18 14:48 RBC Morphology Not Reportable 11/26/18 14:48 Dimorphic RBCs Not Reportable 11/26/18 14:48 Polychromasia Not Reportable 11/26/18 14:48 Hypochromasia Not Reportable 11/26/18 14:48 Poikilocytosis Not Reportable 11/26/18 14:48 Anisocytosis Not Reportable 11/26/18 14:48 Microcytosis Not Reportable 11/26/18 14:48 Macrocytosis Not Reportable 11/26/18 14:48 Spherocytes Not Reportable 11/26/18 14:48 Pappenheimer Bodies Not Reportable 11/26/18 14:48 Sickle Cells Not Reportable 11/26/18 14:48 Target Cells Not Reportable 11/26/18 14:48 Tear Drop Cells Not Reportable 11/26/18 14:48 Ovalocytes Not Reportable 11/26/18 14:48 Helmet Cells Not Reportable 11/26/18 14:48 [place] Bodies Not Reportable 11/26/18 14:48 [place] Rings Not Reportable 11/26/18 14:48 [place] Cells Not Reportable 11/26/18 14:48 Bite Cells Not Reportable 11/26/18 14:48 Crenated Cell Not Reportable 11/26/18 14:48 Elliptocytes Not Reportable 11/26/18 14:48 Acanthocytes (Spur) Not Reportable 11/26/18 14:48 Rouleaux Not Reportable 11/26/18 14:48 Hemoglobin C Crystals Not Reportable 11/26/18 14:48 Schistocytes Not Reportable 11/26/18 14:48 Malaria parasites Not Reportable 11/26/18 14:48 Teto Bodies Not Reportable 11/26/18 14:48 Hem Pathologist Commnt No 11/26/18 14:48 PT 16.5 Sec. (12.2-14.9) H 11/29/18 04:43 INR 1.25 (0.87-1.13) H 11/29/18 04:43 APTT 33.7 Sec. (24.2-36.6) 11/26/18 14:48 D-Dimer 291.49 ng/mlDDU (0-234) H 11/26/18 14:28 Sodium 137 mmol/L (137-145) 11/28/18 04:42 Potassium 4.0 mmol/L (3.6-5.0) 11/28/18 04:42 Chloride 101.7 mmol/L (98-107) 11/28/18 04:42 Carbon Dioxide 27 mmol/L (22-30) 11/28/18 04:42 Anion Gap 12 mmol/L 11/28/18 04:42 BUN 13 mg/dL (9-20) 11/28/18 04:42 Creatinine 0.6 mg/dL (0.8-1.5) L 11/28/18 04:42 Estimated GFR > 60 ml/min 11/28/18 04:42 BUN/Creatinine Ratio 22 % 11/28/18 04:42 Glucose 145 mg/dL (75-100) H 11/28/18 04:42 POC Glucose 104 (70-105) 11/29/18 11:08 Hemoglobin A1c 7.6 % (4-6) H 11/28/18 04:42 Lactic Acid 1.60 mmol/L (0.7-2.0) 11/26/18 17:28 Calcium 9.6 mg/dL (8.4-10.2) 11/28/18 04:42 Total Bilirubin 2.20 mg/dL (0.1-1.2) H 11/26/18 14:48 AST 11 units/L (5-40) 11/26/18 14:48 ALT 10 units/L (7-56) 11/26/18 14:48 Alkaline Phosphatase 102 units/L (35-129) 11/26/18 14:48 Ammonia 39.0 umol/L (25-60) 11/26/18 14:48 Troponin T < 0.010 ng/mL (0.00-0.029) 11/26/18 14:48 Total Protein 6.6 g/dL (6.3-8.2) 11/26/18 14:48 Albumin 3.3 g/dL (3.9-5) L 11/26/18 14:48 Albumin/Globulin Ratio 1.0 % 11/26/18 14:48 TSH 1.600 mlU/mL (0.270-4.200) 11/26/18 14:48 Urine Color Yellow (Yellow) 11/26/18 17:25 Urine Turbidity Clear (Clear) 11/26/18 17:25 Urine pH 6.0 (5.0-7.0) 11/26/18 17:25 Ur Specific [place] 1.021 (1.003-1.030) 11/26/18 17:25 Urine Protein <15 mg/dl mg/dL (Negative) 11/26/18 17:25 Urine Glucose (UA) Neg mg/dL (Negative) 11/26/18 17:25 Urine Ketones Neg mg/dL (Negative) 11/26/18 17:25 Urine Blood Neg (Negative) 11/26/18 17:25 Urine Nitrite Neg (Negative) 11/26/18 17:25 Urine Bilirubin Neg (Negative) 11/26/18 17:25 Urine Urobilinogen 4.0 mg/dL (<2.0) 11/26/18 17:25 Ur Leukocyte Esterase Neg (Negative) 11/26/18 17:25 Urine WBC (Auto) 1.0 /HPF (0.0-6.0) 11/26/18 17:25 Urine RBC (Auto) 2.0 /HPF (0.0-6.0) 11/26/18 17:25 U Epithel Cells (Auto) < 1.0 /HPF (0-13.0) 11/26/18 17:25 Digoxin 0.3 ng/mL (0.9-2.0) L 11/27/18 13:08 Plasma/Serum Alcohol < 0.01 % (0-0.07) 11/26/18 14:48 Active Medications - Current Medications Current Medications: Generic Name Dose Route Start Last Admin Trade Name Meron PRN Reason Stop Dose Admin Acetaminophen 650 mg 11/27/18 00:28 Tylenol PO Q4H PRN Pain MILD(1-3)/Fever >100.5/GONZALES Aspirin 81 mg 11/27/18 10:00 11/29/18 09:41 Baby Aspirin PO 81 mg QDAY STARR Administration Dabigatran 150 mg 11/27/18 22:00 11/29/18 09:41 Pradaxa PO 150 mg BID STARR Administration Protocol Digoxin 0.125 mg 11/27/18 17:00 11/28/18 17:02 Lanoxin PO 0.125 mg DAILY@1700 STARR Administration Gabapentin 300 mg 11/27/18 01:00 11/29/18 05:37 Neurontin PO 300 mg Q8HR STARR Administration Hydromorphone HCl 0.5 mg 11/27/18 00:29 11/27/18 04:58 Dilaudid IV 0.5 mg Q3H PRN Administration Pain , Severe (7-10) Ampicillin Sodium/Sulbactam Sodium 3 gm in 100 mls @ 100 mls/hr 11/27/18 01:00 11/29/18 05:37 Unasyn/Ns 3 Gm/100 Ml IV 100 mls/hr Q6HR [facility] Administration Protocol Vancomycin HCl 2,000 mg/ 540 mls @ 250 mls/hr 11/27/18 12:00 11/29/18 12:39 Sodium Chloride IV 250 mls/hr Q24H STARR Administration Insulin Human Lispro 0 unit 11/27/18 07:30 11/29/18 12:16 Humalog SUB-Q Not Given [facility] Protocol Lisinopril 5 mg 11/27/18 12:40 11/29/18 09:41 Zestril PO 5 mg QDAY STARR Administration Metoprolol Succinate 100 mg 11/27/18 13:00 11/29/18 00:27 Toprol Xl PO 100 mg Q12H STARR Administration Ondansetron HCl 4 mg 11/27/18 00:28 Zofran IV Q8H PRN Nausea And Vomiting Oxycodone HCl 10 mg 11/27/18 00:26 11/29/18 12:45 Roxicodone PO 10 mg Q6H PRN Administration chronic back pain Oxycodone/Acetaminophen 1 tab 11/27/18 00:29 11/28/18 21:54 Percocet 5/325 PO 1 tab Q6H PRN Administration Pain, Moderate (4-6) Sodium Chloride 10 ml 11/27/18 10:00 11/29/18 09:50 Sodium Chloride Flush Syringe 10 Ml IV 10 ml BID STARR Administration Sodium Chloride 10 ml 11/27/18 00:28 Sodium Chloride Flush Syringe 10 Ml IV PRN PRN LINE FLUSH
[2018-11-29] MEDS: LANOXIN PO SCH (17:45)
[2018-11-30] MEDS: TOPROL XL PO SCH ×2 (01:11→13:40)
[2018-11-30] MEDS: UNASYN/NS 3 GM/100 ML 3 GM/100 ML BAG IV SCH ×5 (01:12→23:22)
[2018-11-30] MEDS: NEURONTIN PO SCH ×3 (05:07→21:05)
[2018-11-30] MEDS: ROXICODONE PO PRN ×4 (05:08→23:07)
[2018-11-30 06:37] LABS: Hematocrit 38.7 % (35.5-45.6); Hemoglobin 12.6 gm/dl (11.8-15.2)
[2018-11-30 06:46] LABS: INR 1.25 (0.87-1.13)
[2018-11-30] MEDS: HumaLOG SUB-Q SCH ×4 (10:11→21:02)
[2018-11-30] MEDS: BABY ASPIRIN PO SCH (10:12)
[2018-11-30] MEDS: PRADAXA PO SCH ×2 (10:12→21:05)
[2018-11-30] MEDS: ZESTRIL PO SCH (10:12)
[2018-11-30] MEDS: SODIUM CHLORIDE FLUSH SYRINGE 10 ML IV SCH ×2 (10:14→21:05)
[2018-11-30] MEDS: VANCOMYCIN 2,000 MG in NACL 0.9% 500 ML 500 ML IV SCH (13:41)
--- NOTE | 2018-11-30 14:57 | Progress Note ---
Assessment and Plan - Patient Problems (1) Chronic atrial fibrillation Current Visit: Yes Status: Acute Plan to address problem: Continue medical therapy for atrial fibrillation rate control and oral anticoagulation as previously directed. Subjective Date of service: 11/30/18 Principal diagnosis: Afib Interval history: Patient is comfortable, no new cardiac complaints. Objective Vital Signs Temp Pulse Resp BP Pulse Ox 11/30/18 13:40 109 H 123/71 11/30/18 12:00 89 23 127/78 96 11/30/18 11:00 85 19 108/75 97 11/30/18 10:00 95 H 20 108/75 96 11/30/18 09:00 64 16 127/81 94 11/30/18 08:00 104 H 13 127/81 95 11/30/18 07:00 68 18 128/73 93 11/30/18 06:00 94 H 29 H 109/65 94 11/30/18 05:00 83 22 109/65 94 11/30/18 04:00 123 H 19 119/54 93 11/30/18 03:40 101 H 18 119/54 96 11/30/18 03:30 85 18 119/54 98 11/30/18 03:20 99 H 12 119/54 92 11/30/18 03:10 105 H 14 93 11/30/18 03:00 96 H 18 109/70 91 11/30/18 02:50 101 H 16 109/70 95 11/30/18 02:40 93 H 16 109/70 93 11/30/18 02:30 111 H 19 109/70 95 11/30/18 02:20 89 24 109/70 96 11/30/18 02:10 87 19 109/70 95 11/30/18 02:00 78 21 109/70 11/30/18 01:50 70 19 110/60 93 11/30/18 01:40 84 19 110/60 94 11/30/18 01:30 87 20 110/60 93 11/30/18 01:20 78 18 110/60 94 11/30/18 01:11 83 110/60 11/30/18 01:10 92 H 19 110/60 95 11/30/18 01:00 91 H 20 105/59 94 11/30/18 00:50 97 H 26 H 105/59 95 11/30/18 00:40 116 H 24 105/59 96 11/30/18 00:30 86 16 105/59 94 11/30/18 00:20 111 H 17 105/59 92 11/30/18 00:10 79 16 105/59 93 11/30/18 00:00 102 H 17 133/67 94 11/29/18 23:50 90 18 133/67 95 11/29/18 23:40 93 H 23 137/79 92 11/29/18 23:30 90 16 137/79 96 11/29/18 23:20 84 17 137/79 95 11/29/18 23:10 73 16 133/67 96 11/29/18 23:00 82 17 133/67 96 11/29/18 22:50 69 15 137/79 96 11/29/18 22:40 87 22 137/79 96 11/29/18 22:30 84 20 137/79 95 11/29/18 22:20 119 H 22 137/79 95 11/29/18 22:10 103 H 21 137/79 97 11/29/18 22:00 91 H 19 132/78 11/29/18 21:50 87 17 132/78 96 11/29/18 21:40 79 16 132/78 97 11/29/18 21:30 89 22 132/78 96 11/29/18 21:20 101 H 18 132/78 97 11/29/18 21:10 79 14 132/78 97 11/29/18 21:00 66 14 132/78 96 11/29/18 20:50 89 17 141/87 95 11/29/18 20:40 86 18 141/87 95 11/29/18 20:30 78 14 141/87 96 11/29/18 20:20 78 18 141/87 99 11/29/18 20:10 91 H 16 141/87 97 11/29/18 20:00 98.2 F 86 21 141/87 97 11/29/18 19:50 89 24 140/77 96 11/29/18 19:40 93 H 19 140/77 96 11/29/18 19:30 80 16 140/77 96 11/29/18 18:10 110 H 17 121/77 97 11/29/18 18:00 89 17 134/83 95 11/29/18 17:50 120 H 17 121/77 94 11/29/18 17:40 95 H 16 121/77 96 11/29/18 17:30 88 24 121/77 97 11/29/18 17:20 86 13 121/77 97 11/29/18 17:10 86 16 121/77 98 11/29/18 17:00 75 17 121/77 97 11/29/18 16:50 72 15 123/79 11/29/18 16:40 91 H 21 123/79 92 11/29/18 16:30 77 17 123/79 93 11/29/18 16:20 79 17 123/79 11/29/18 16:10 87 16 79/36 11/29/18 16:00 82 21 122/72 97 11/29/18 15:50 91 H 17 122/72 94 11/29/18 15:42 96 H 18 115/73 89 11/29/18 15:31 112/60 86 11/29/18 15:20 78 14 112/60 95 11/29/18 15:14 75 16 112/60 11/29/18 15:00 34 H 112/60 - Physical Examination General: No Apparent Distress HEENT: Positive: PERRL Neck: Positive: neck supple Cardiac: Positive: Irregularly Regular Lungs: Positive: Decreased Breath Sounds Neuro: Positive: Grossly Intact Abdomen: Positive: Soft Skin: Positive: Clear Extremities: Absent: edema - Labs and Meds Coagulation 11/30/18 Range/Units 05:16 PT 16.5 H (12.2-14.9) Sec. INR 1.25 H (0.87-1.13) CBC 11/30/18 Range/Units 05:16 Hgb 12.6 (11.8-15.2) gm/dl Hct 38.7 (35.5-45.6) % Plt Count 124 L (140-440) K/mm3
[2018-11-30] MEDS: LANOXIN PO SCH (17:06)
--- NOTE | 2018-11-30 18:02 | Progress Note ---
Assessment and Plan Assessment and plan: --A. fib with rapid ventricular rate; s/p Cardizem drip Now rate controlled, continue beta blockers and digoxin Cardiology following --Chronic anticoagulation; on Pradaxa --History of PE , patient is on Pradaxa --Sepsis/SIRS; lactic acidosis; --Bilateral lower extremity cellulitis; elevate the limb Continue empiric antibiotics follow cultures --Nonischemic cardiomyopathy; ejection fraction 35-40% Continue anti-failure medications, cardiology following --Type 2 diabetes mellitus; Accu-Chek sliding scale coverage and ADA diet Check A1c 7.6, resume metformin upon discharge --Hypertension; moderate control Continue current antihypertensives and when necessary medications --DVT prophylaxis; SCD/Pradaxa --Moderate malnutrition; nutrition supplements and supportive care --Full code: Possible discharge home tomorrow if stable Plan of care reviewed with the patient and his nurse History Interval history: Patient seen and examined medical records reviewed No new events reported by the nursing staff Intermittent A. fib with rapid ventricular rate Patient is comfortable with vital signs reviewed Hospitalist Physical - Constitutional Vitals: Temp Pulse Resp BP Pulse Ox 98.2 F 98 H 20 140/80 96 11/29/18 20:00 11/30/18 17:06 11/30/18 16:00 11/30/18 17:06 11/30/18 16:00 General appearance: Present: no acute distress, well-nourished (who is listed today yet) - EENT Eyes: Present: PERRL, EOM intact - Neck Neck: Present: supple, normal ROM - Respiratory Respiratory effort: normal Respiratory: bilateral: diminished, negative: rales, rhonchi, wheezing - Cardiovascular Rhythm: regular Heart Sounds: Present: S1 & S2 - Extremities Extremities: no ischemia, abnormal (bilateral lower extremity cellulitis) Extremity abnormal: edema - Abdominal General gastrointestinal: soft, non-tender, non-distended, normal bowel sounds - Integumentary Integumentary: Present: clear, warm - Psychiatric Psychiatric: appropriate mood/affect, cooperative - Neurologic Neurologic: CNII-XII intact, moves all extremities Results - Labs CBC & Chem 7: 11/30/18 05:16 11/28/18 04:42 Labs: Laboratory Last Values WBC 3.9 K/mm3 (4.5-11.0) L 11/28/18 04:42 RBC 4.52 M/mm3 (3.65-5.03) 11/28/18 04:42 Hgb 12.6 gm/dl (11.8-15.2) 11/30/18 05:16 Hct 38.7 % (35.5-45.6) 11/30/18 05:16 MCV 83 fl (84-94) L 11/28/18 04:42 MCH 27 pg (28-32) L 11/28/18 04:42 MCHC 32 % (32-34) 11/28/18 04:42 RDW 17.7 % (13.2-15.2) H 11/28/18 04:42 Plt Count 124 K/mm3 (140-440) L 11/30/18 05:16 Lymph % (Auto) 14.9 % (13.4-35.0) 11/28/18 04:42 [place] % (Auto) 11.4 % (0.0-7.3) H 11/28/18 04:42 Eos % (Auto) 1.4 % (0.0-4.3) 11/28/18 04:42 Baso % (Auto) 0.3 % (0.0-1.8) 11/28/18 04:42 Lymph # 0.6 K/mm3 (1.2-5.4) L 11/28/18 04:42 [place] # 0.4 K/mm3 (0.0-0.8) 11/28/18 04:42 Eos # 0.1 K/mm3 (0.0-0.4) 11/28/18 04:42 Baso # 0.0 K/mm3 (0.0-0.1) 11/28/18 04:42 Add Manual Diff Complete 11/26/18 14:48 Total Counted 100 11/26/18 14:48 Seg Neutrophils % 72.0 % (40.0-70.0) H 11/28/18 04:42 Seg Neuts % (Manual) 91.0 % (40.0-70.0) H 11/26/18 14:48 Band Neutrophils % 5.0 % 11/26/18 14:48 Lymphocytes % (Manual) 2.0 % (13.4-35.0) L 11/26/18 14:48 Reactive Lymphs % (Man) 0 % 11/26/18 14:48 Monocytes % (Manual) 2.0 % (0.0-7.3) 11/26/18 14:48 Eosinophils % (Manual) 0 % (0.0-4.3) 11/26/18 14:48 Basophils % (Manual) 0 % (0.0-1.8) 11/26/18 14:48 Metamyelocytes % 0 % 11/26/18 14:48 Myelocytes % 0 % 11/26/18 14:48 Promyelocytes % 0 % 11/26/18 14:48 Blast Cells % 0 % 11/26/18 14:48 Nucleated RBC % Not Reportable 11/26/18 14:48 Seg Neutrophils # 2.8 K/mm3 (1.8-7.7) 11/28/18 04:42 Seg Neutrophils # Man 11.6 K/mm3 (1.8-7.7) H 11/26/18 14:48 Band Neutrophils # 0.6 K/mm3 11/26/18 14:48 Lymphocytes # (Manual) 0.3 K/mm3 (1.2-5.4) L 11/26/18 14:48 Abs React Lymphs (Man) 0.0 K/mm3 11/26/18 14:48 Monocytes # (Manual) 0.3 K/mm3 (0.0-0.8) 11/26/18 14:48 Eosinophils # (Manual) 0.0 K/mm3 (0.0-0.4) 11/26/18 14:48 Basophils # (Manual) 0.0 K/mm3 (0.0-0.1) 11/26/18 14:48 Metamyelocytes # 0.0 K/mm3 11/26/18 14:48 Myelocytes # 0.0 K/mm3 11/26/18 14:48 Promyelocytes # 0.0 K/mm3 11/26/18 14:48 Blast Cells # 0.0 K/mm3 11/26/18 14:48 WBC Morphology Not Reportable 11/26/18 14:48 Hypersegmented Neuts Not Reportable 11/26/18 14:48 Hyposegmented Neuts Not Reportable 11/26/18 14:48 Hypogranular Neuts Not Reportable 11/26/18 14:48 Smudge Cells Not Reportable 11/26/18 14:48 Toxic Granulation Not Reportable 11/26/18 14:48 Toxic Vacuolation Not Reportable 11/26/18 14:48 Dohle Bodies Not Reportable 11/26/18 14:48 Pel[place] Anomaly Not Reportable 11/26/18 14:48 Alexis Rods Not Reportable 11/26/18 14:48 Platelet Estimate Consistent w auto 11/26/18 14:48 Clumped Platelets Not Reportable 11/26/18 14:48 Plt Clumps, EDTA Not Reportable 11/26/18 14:48 Large Platelets Not Reportable 11/26/18 14:48 Giant Platelets Not Reportable 11/26/18 14:48 Platelet Satelliting Not Reportable 11/26/18 14:48 Plt Morphology Comment Not Reportable 11/26/18 14:48 RBC Morphology Not Reportable 11/26/18 14:48 Dimorphic RBCs Not Reportable 11/26/18 14:48 Polychromasia Not Reportable 11/26/18 14:48 Hypochromasia Not Reportable 11/26/18 14:48 Poikilocytosis Not Reportable 11/26/18 14:48 Anisocytosis Not Reportable 11/26/18 14:48 Microcytosis Not Reportable 11/26/18 14:48 Macrocytosis Not Reportable 11/26/18 14:48 Spherocytes Not Reportable 11/26/18 14:48 Pappenheimer Bodies Not Reportable 11/26/18 14:48 Sickle Cells Not Reportable 11/26/18 14:48 Target Cells Not Reportable 11/26/18 14:48 Tear Drop Cells Not Reportable 11/26/18 14:48 Ovalocytes Not Reportable 11/26/18 14:48 Helmet Cells Not Reportable 11/26/18 14:48 [place] Bodies Not Reportable 11/26/18 14:48 [place] Rings Not Reportable 11/26/18 14:48 [place] Cells Not Reportable 11/26/18 14:48 Bite Cells Not Reportable 11/26/18 14:48 Crenated Cell Not Reportable 11/26/18 14:48 Elliptocytes Not Reportable 11/26/18 14:48 Acanthocytes (Spur) Not Reportable 11/26/18 14:48 Rouleaux Not Reportable 11/26/18 14:48 Hemoglobin C Crystals Not Reportable 11/26/18 14:48 Schistocytes Not Reportable 11/26/18 14:48 Malaria parasites Not Reportable 11/26/18 14:48 [place] Bodies Not Reportable 11/26/18 14:48 Hem Pathologist Commnt No 11/26/18 14:48 PT 16.5 Sec. (12.2-14.9) H 11/30/18 05:16 INR 1.25 (0.87-1.13) H 11/30/18 05:16 APTT 33.7 Sec. (24.2-36.6) 11/26/18 14:48 D-Dimer 291.49 ng/mlDDU (0-234) H 11/26/18 14:28 Sodium 137 mmol/L (137-145) 11/28/18 04:42 Potassium 4.0 mmol/L (3.6-5.0) 11/28/18 04:42 Chloride 101.7 mmol/L (98-107) 11/28/18 04:42 Carbon Dioxide 27 mmol/L (22-30) 11/28/18 04:42 Anion Gap 12 mmol/L 11/28/18 04:42 BUN 13 mg/dL (9-20) 11/28/18 04:42 Creatinine 0.6 mg/dL (0.8-1.5) L 11/28/18 04:42 Estimated GFR > 60 ml/min 11/28/18 04:42 BUN/Creatinine Ratio 22 % 11/28/18 04:42 Glucose 145 mg/dL (75-100) H 11/28/18 04:42 POC Glucose 164 (70-105) H 11/30/18 12:21 Hemoglobin A1c 7.6 % (4-6) H 11/28/18 04:42 Lactic Acid 1.60 mmol/L (0.7-2.0) 11/26/18 17:28 Calcium 9.6 mg/dL (8.4-10.2) 11/28/18 04:42 Total Bilirubin 2.20 mg/dL (0.1-1.2) H 11/26/18 14:48 AST 11 units/L (5-40) 11/26/18 14:48 ALT 10 units/L (7-56) 11/26/18 14:48 Alkaline Phosphatase 102 units/L (35-129) 11/26/18 14:48 Ammonia 39.0 umol/L (25-60) 11/26/18 14:48 Troponin T < 0.010 ng/mL (0.00-0.029) 11/26/18 14:48 Total Protein 6.6 g/dL (6.3-8.2) 11/26/18 14:48 Albumin 3.3 g/dL (3.9-5) L 11/26/18 14:48 Albumin/Globulin Ratio 1.0 % 11/26/18 14:48 TSH 1.600 mlU/mL (0.270-4.200) 11/26/18 14:48 Urine Color Yellow (Yellow) 11/26/18 17:25 Urine Turbidity Clear (Clear) 11/26/18 17:25 Urine pH 6.0 (5.0-7.0) 11/26/18 17:25 Ur Specific [place] 1.021 (1.003-1.030) 11/26/18 17:25 Urine Protein <15 mg/dl mg/dL (Negative) 11/26/18 17:25 Urine Glucose (UA) Neg mg/dL (Negative) 11/26/18 17:25 Urine Ketones Neg mg/dL (Negative) 11/26/18 17:25 Urine Blood Neg (Negative) 11/26/18 17:25 Urine Nitrite Neg (Negative) 11/26/18 17:25 Urine Bilirubin Neg (Negative) 11/26/18 17:25 Urine Urobilinogen 4.0 mg/dL (<2.0) 11/26/18 17:25 Ur Leukocyte Esterase Neg (Negative) 11/26/18 17:25 Urine WBC (Auto) 1.0 /HPF (0.0-6.0) 11/26/18 17:25 Urine RBC (Auto) 2.0 /HPF (0.0-6.0) 11/26/18 17:25 U Epithel Cells (Auto) < 1.0 /HPF (0-13.0) 11/26/18 17:25 Digoxin 0.3 ng/mL (0.9-2.0) L 11/27/18 13:08 Plasma/Serum Alcohol < 0.01 % (0-0.07) 11/26/18 14:48 Active Medications - Current Medications Current Medications: Generic Name Dose Route Start Last Admin Trade Name Freq PRN Reason Stop Dose Admin Acetaminophen 650 mg 11/27/18 00:28 Tylenol PO Q4H PRN Pain MILD(1-3)/Fever >100.5/GONZALES Aspirin 81 mg 11/27/18 10:00 11/30/18 10:12 Baby Aspirin PO 81 mg QDAY STARR Administration Dabigatran 150 mg 11/27/18 22:00 11/30/18 10:12 Pradaxa PO 150 mg BID STARR Administration Protocol Digoxin 0.125 mg 11/27/18 17:00 11/30/18 17:06 Lanoxin PO 0.125 mg DAILY@1700 STARR Administration Gabapentin 300 mg 11/27/18 01:00 11/30/18 13:40 Neurontin PO 300 mg Q8HR STARR Administration Hydromorphone HCl 0.5 mg 11/27/18 00:29 11/27/18 04:58 Dilaudid IV 0.5 mg Q3H PRN Administration Pain , Severe (7-10) Ampicillin Sodium/Sulbactam Sodium 3 gm in 100 mls @ 100 mls/hr 11/27/18 01:00 11/30/18 17:07 Unasyn/Ns 3 Gm/100 Ml IV 100 mls/hr Q6HR STARR Administration Protocol Vancomycin HCl 2,000 mg/ 540 mls @ 250 mls/hr 11/27/18 12:00 11/30/18 13:41 Sodium Chloride IV 250 mls/hr Q24H STARR Administration Insulin Human Lispro 0 unit 11/27/18 07:30 11/30/18 17:07 Humalog SUB-Q 1 unit ACHS STARR Administration Protocol Lisinopril 5 mg 11/27/18 12:40 11/30/18 10:12 Zestril PO Not Given QDAY STARR Metoprolol Succinate 100 mg 11/27/18 13:00 11/30/18 13:40 Toprol Xl PO 100 mg Q12H STARR Administration Ondansetron HCl 4 mg 11/27/18 00:28 Zofran IV Q8H PRN Nausea And Vomiting Oxycodone HCl 10 mg 11/27/18 00:26 11/30/18 17:06 Roxicodone PO 10 mg Q6H PRN Administration chronic back pain Oxycodone/Acetaminophen 1 tab 11/27/18 00:29 11/28/18 21:54 Percocet 5/325 PO 1 tab Q6H PRN Administration Pain, Moderate (4-6) Sodium Chloride 10 ml 11/27/18 10:00 11/30/18 10:14 Sodium Chloride Flush Syringe 10 Ml IV 10 ml BID STARR Administration Sodium Chloride 10 ml 11/27/18 00:28 Sodium Chloride Flush Syringe 10 Ml IV PRN PRN LINE FLUSH
[2018-11-30] MEDS: DILAUDID IV PRN (21:11)
[2018-12-01] MEDS: TOPROL XL PO SCH ×2 (01:58→13:03)
[2018-12-01] MEDS: NEURONTIN PO SCH ×2 (05:04→13:03)
[2018-12-01] MEDS: ROXICODONE PO PRN ×2 (05:04→10:28)
[2018-12-01] MEDS: UNASYN/NS 3 GM/100 ML 3 GM/100 ML BAG IV SCH ×2 (05:05→13:03)
[2018-12-01 06:58] LABS: INR 1.26 (0.87-1.13)
[2018-12-01] MEDS: HumaLOG SUB-Q SCH ×2 (07:30→11:30)
[2018-12-01] MEDS: BABY ASPIRIN PO SCH (10:25)
[2018-12-01] MEDS: PRADAXA PO SCH (10:26)
[2018-12-01] MEDS: ZESTRIL PO SCH (10:26)
[2018-12-01] MEDS: SODIUM CHLORIDE FLUSH SYRINGE 10 ML IV SCH (10:26)
[2018-12-01] MEDS: VANCOMYCIN 2,000 MG in NACL 0.9% 500 ML 500 ML IV SCH (13:02)
--- NOTE | 2018-12-01 13:10 | Discharge Summary ---
Providers - Providers Date of Admission: 11/26/18 18:02 Date of discharge: 12/01/18 Attending physician: TOMMY WATSON 11/27/18 00:31 Consult to Physician [CONS] Routine Comment: Consulting Provider: KRISTEN EPRRY Physician Instructions: Reason For Exam: Rapid A fib 11/28/18 18:07 Physical Therapy Evaluation and Treat [CONS] Routine Comment: Reason For Exam: gen debility/evaluate and treat Primary care physician: ACID CUTTER Hospitalization Reason for admission: altered level of consciousness/A. fib with rapid ventricular rate Condition: Stable Pertinent studies: CT head without contrast; no acute intracranial abnormality noted mild cerebral atrophy Chest x-ray; emphysematous changes, prominent interstitium Echocardiogram; ejection fraction 35-40% Hospital course: 73-year-old male patient with significant past medical history of diabetes mellitus atrial fibrillation hepatitis C chronic Chronic back pain hypertension was admitted through emergency room with altered level of consciousness of 1 day duration. Initial evaluation was consistent with A. fib with rapid ventricular rate requiring Cardizem drip Patient was admitted to [facility] evaluation by cardiology medications were optimized Patient also had lower extremity cellulitis started on empiric antibiotics and supportive care Blood pressures blood sugars closely monitored medications optimized Symptoms significantly improved, patient was managed by high-dose metoprolol and digoxin Along with oral anticoagulants, The patient is comfortable in no new complaints Vital signs stable, Physical examination unremarkable Hemodynamically and clinically stable at discharge Discharge diagnosis; --A. fib with rapid ventricular rate; s/p Cardizem drip continue beta blockers and digoxin,Cardiology evaluated --Chronic anticoagulation; on Pradaxa --History of PE , patient is on Pradaxa --Sepsis/SIRS; lactic acidosis; --Bilateral lower extremity cellulitis; elevate the limb Continue empiric antibiotics follow cultures --Nonischemic cardiomyopathy; ejection fraction 35-40% Continue anti-failure medications, cardiology following --Type 2 diabetes mellitus; Accu-Chek sliding scale coverage and ADA diet Check A1c 7.6, resume metformin upon discharge --Hypertension; moderate control Continue current antihypertensives and when necessary medications --DVT prophylaxis; SCD/Pradaxa --Moderate malnutrition; nutrition supplements and supportive care --Full code: Head by cardiology for discharge and follow up in the office Patient is stable at discharge Disposition: TO HOME OR SELFCARE Time spent for discharge: 32 min Core Measure Documentation - Palliative Care Palliative Care/ Comfort Measures: Not Applicable - Core Measures Any of the following diagnoses?: none - Heart Failure Discharge Requirements YI/ARB for LVSD if EF <40%: Yes Beta bernadine at discharge: Yes Exam - Constitutional Vitals: Temp Pulse Resp BP Pulse Ox 97.5 F L 70 22 97/79 96 12/01/18 12:00 12/01/18 12:00 12/01/18 12:00 12/01/18 12:00 12/01/18 12:00 General appearance: Present: no acute distress, well-nourished - EENT Eyes: Present: PERRL, EOM intact - Neck Neck: Present: supple, normal ROM - Respiratory Respiratory effort: normal Respiratory: bilateral: diminished, negative: rales, rhonchi, wheezing - Cardiovascular Rhythm: regular Heart Sounds: Present: S1 & S2 - Extremities Extremities: no ischemia, No edema, abnormal (cellulitis /chronic changes) - Abdominal General gastrointestinal: Present: soft, non-tender, non-distended, normal bowel sounds - Integumentary Integumentary: Present: clear, warm - Musculoskeletal Musculoskeletal: strength equal bilaterally - Psychiatric Psychiatric: appropriate mood/affect, cooperative - Neurologic Neurologic: CNII-XII intact, moves all extremities Plan Activity: no restrictions Diet: other (cardiac diet) Additional Instructions: Elevate the legs while resting Follow up with: PRIMARY CARE, [Primary Care Provider] - 3-5 Days JOSE ALFREDO GUADARRAMA MD [Staff Physician] - 7 Days Prescriptions: Clindamycin [Clindamycin CAP] 300 mg PO Q6H #28 capsule Digoxin [Lanoxin] 0.125 mg PO DAILY@1700 #30 tablet Furosemide [Lasix] 20 mg PO QDAY #30 tablet Metoprolol Xl [Metoprolol SUCCINATE ER TAB] 100 mg PO Q12H #60 tablet Dabigatran [Pradaxa] 150 mg PO BID #60 capsule
[2018-12-01 15:10] VITALS: BP 113/77
== END 2018-12-01 16:16 | disposition home or self-care (01) | DRG 871 ==
LOC: ED 14:10 → IMCU 18:02
PROVIDERS: ADMIT Internal Medicine; ATTEND Internal Medicine
DX: A41.9 Sepsis, unspecified organism (principal); G93.41 Metabolic encephalopathy; L03.116 Cellulitis of left lower limb; L03.115 Cellulitis of right lower limb; E44.0 Moderate protein-calorie malnutrition; I42.0 Dilated cardiomyopathy; E11.9 Type 2 diabetes mellitus without complications; G89.29 Other chronic pain; M54.9 Dorsalgia, unspecified; I48.0 Paroxysmal atrial fibrillation; I48.2 Chronic atrial fibrillation; I25.10 Atherosclerotic heart disease of native coronary artery without angina pectoris; F17.200 Nicotine dependence, unspecified, uncomplicated; J43.8 Other emphysema; I11.0 Hypertensive heart disease with heart failure; I50.9 Heart failure, unspecified; M19.90 Unspecified osteoarthritis, unspecified site; Z86.19 Personal history of other infectious and parasitic diseases; Z79.01 Long term (current) use of anticoagulants; Z86.711 Personal history of pulmonary embolism; Z68.37 Body mass index [BMI] 37.0-37.9, adult; Z82.49 Family history of ischemic heart disease and other diseases of the circulatory system
CPT/HCPCS: 36415; 70450; 71045; 80048; 80053; 80162; 80320; 81001; 82140; 82962; 83036; 84443; 84484; 85007; 85014; 85018; 85025; 85049; 85379; 85610; 85730; 87040; 93005; 93010; 93306; 96365; 96375; G0378; G0480; J0295; J1170; J1815; J2543; J3370; J7030; J7040